=== PATIENT | female | born 1930 | race Caucasian/White ===

== ENCOUNTER 2017-02-09 11:33 | Inpatient (IN) | payer OTHER ==
[~2017-02-09] VITALS: Ht 157.5 cm; Wt 48.6 kg
--- NOTE | 2017-02-09 11:40 | NUR ---
HARRIS SHAH 41 FROM HOME,CALLED 911 FOR ASSISTANCE GETTING BACK TO BED BUT EMS C/O DISCHARGE, DENIES HEMATUIRA OR DYSURIA, NAD NOTED, VSS, PUT ON HOSPITAL GOWN AND MONITOR, WAITING FOR MD FISHER.
[2017-02-09] MEDS ORDERED: CEFTRIAXONE 1 G VIAL ONE (11:52)
[2017-02-09] MEDS ORDERED: AZITHROMYCIN 250 MG TABLET ONE (11:52)
[2017-02-09 12:16] LABS: BASOPHILS % (AUTO) 0.3 % (0.0-2.0); EOSINOPHILS % (AUTO) 0.2 % (0.0-6.0); HEMATOCRIT 48 % (33-45); HEMOGLOBIN 16.1 g/dL (11.5-14.8); LYMPHOCYTES # (AUTO) 1.3 /CMM (0.8-4.8); LYMPHOCYTES % (AUTO) 13.1 % (20.0-44.0); MEAN CORPUSCULAR HEMOGLOBIN 36 PG (26.0-33.0); MEAN CORPUSCULAR HGB CONC 34 g/dl (31.0-36.0); MEAN CORPUSCULAR VOLUME 106 fL (82-100); MONOCYTES # (AUTO) 0.8 /CMM (0.1-1.30); MONOCYTES % (AUTO) 8.2 % (2.0-12.0); NEUTROPHILS # (AUTO) 7.7 /CMM (1.8-8.9); NEUTROPHILS % (AUTO) 78.2 % (43.0-81.0); PLATELET COUNT (AUTO) 171 /CMM (150-450); RED BLOOD CELL COUNT(AUTO) 4.48 MIL/uL (4.0-5.2); WHITE BLOOD COUNT (AUTO) 9.9 K/uL (4.3-11.0)
[2017-02-09 12:24] LABS: CALCIUM, SERUM 9.4 mg/dL (8.5-10.1); CARBON DIOXIDE 29 mmol/L (21-32); CHLORIDE 99 mmol/L (98-107); CREATININE 1.3 mg/dL (0.6-1.3); GLUCOSE 115 mg/dL (74-106); POTASSIUM 3.4 mmol/L (3.5-5.1); SODIUM SERUM 137 mmol/L (136-145); UREA NITROGEN, BLOOD 25 mg/dL (7-18)
[2017-02-09 12:30] LABS: ACETAMINOPHEN 0 ug/ml (10-30); ALANINE AMINOTRANSFERASE 19 U/L (12-78); ALBUMIN 3.9 g/dL (3.4-5.0); ALCOHOL, BLOOD < 3 mg/dL (0-0); ALKALINE PHOSPHATASE 109 U/L (46-116); ASPARTATE AMINOTRANSFERASE 36 U/L (15-37); BILIRUBIN,DIRECT 0.4 mg/dL (0.0-0.2); BILIRUBIN,TOTAL 1.8 mg/dL (0.2-1.0); SALICYLATE < 0.2 mg/dL (2.8-20.0); TOTAL PROTEIN, SERUM 8.6 g/dL (6.4-8.2)
[2017-02-09] MEDS ORDERED: IV NS 0.9% 1,000 ML BAG IV ONE (13:00)
--- NOTE | 2017-02-09 13:06 | NUR ---
PT BACK FROM CT SCAN
[2017-02-09 13:26] LABS: LYMPHOCYTES % (MANUAL) 14 % (16-48); MONOCYTES % (MANUAL) 9 % (0-11.0); NEUTROPHILS % (MANUAL) 77 (42-76)
--- NOTE | 2017-02-09 13:54 | NUR ---
CALLED 3W FEW TIMES, BASIL SELBY WILL CALL BACK FOR REPORT, RM [phone]
--- NOTE | 2017-02-09 14:20 | NUR ---
REPORT GIVEN TO JULIANA
[2017-02-09 15:00] VITALS: BP 180/100
--- NOTE | 2017-02-09 15:00 | NUR ---
FIRE PATROL NOTES PATIENT ADMITTED FROM ER, ON DX OF FAILURE TO THRIVE, AND DEHYDRATION, PATIENT A/O X2/3, CONFUSED, FORGETFUL. NO RESPIRATORY DISTRESS, REDIRECTABLE, SKIN ASSESSMENT DONE, PICTURE TAKEN, V/S TAKEN BP- 180/100, P-88, R-19, O2 -93 ROOM AIR, T-97.7. DVT PUMP ON, . IV ON LEFT AC AREA INFUSING D5 1/2 NS 75 ML/HR, INTACT, NO INFILTRATION. NEEDS ATTENDED AND ANTICIPATED, BELONGING CHECKED, CALL LIGHT WITHIN TO REACH, SIDE RAILS UP X2, BED ALARM ON, DR ARIZA AWARE OF NEW PATIENT, AND LAB RESULT, PATIENT EAT 40 %, ENCOURAGED TO INCREASE FLUID INTAKE. CONTINUED MONITORING.
[2017-02-09] MEDS ORDERED: ACETAMINOPHEN 325 MG TABLET PO PRN (15:30)
[2017-02-09] MEDS ORDERED: HYDROCODONE/APAP 5/325MG 1 EACH TABLET PO PRN (15:30)
[2017-02-09] MEDS ORDERED: MAGNESIUM HYDROXIDE 30 ML UDC PO PRN (15:30)
[2017-02-09] MEDS ORDERED: Z GUARD REMEDY 2 OZ OINT TP PRN (15:30)
[2017-02-09] MEDS ORDERED: ONDANSETRON HCL/PF 4 MG/2 ML VIAL IVP PRN (15:30)
[2017-02-09] MEDS ORDERED: MAG HYDROX/AL HYDROX/SIMETH 30 ML UDC PO PRN (15:30)
[2017-02-09] MEDS ORDERED: ZOLPIDEM TARTRATE 5 MG TABLET PO PRN (15:30)
[2017-02-09 16:00] VITALS: BP 170/100
[2017-02-09] MEDS: IV D5/0.45 NACL 1,000 ML IV PRN (16:16)
--- NOTE | 2017-02-09 18:11 | NUR ---
RN NOTES PATIENT IN THE BED AT THIS TIME, NO ACUTE DISTRESS, NO RESPIRATORY DISTRESS, RUNNING IV ON LEFT AC AREA, INTACT 75ML/HR, NO C/O PAIN, DVT PUMP ON, PT ASSIST TURN AND REPOSITION 2 HR, CALL LIGHT WITHIN TO REACH, SAFETY PRECAUTION MAINTAINED ALL THE TIME.
--- NOTE | 2017-02-09 18:56 | NUR ---
RN NOTES PATIENT STABLE AT THIS TIME, NO C/O PAIN, NO RESPIRATORY DISTRESS, ENDORSED ONCOMING NURSE FOR CONTINUATION OF CARE.
--- NOTE | 2017-02-09 19:15 | NUR ---
MS/SOCIAL WORK MANAGER; RECEIVED PT IN BED AWAKE ALERT AND FRANNIE;ANNA . DENIES PAIN. BREATHING NON LABORED. IVF ON PRGRESS. BED ON LOWER POSITION AND [id number] FOR SAFETY. SIDE RAILS ARE UP FOR SAFETY. WILL CONTINUE TO MONITOR. CALL LIGHT WITHIN REACH.
[2017-02-09 20:00] VITALS: BP 140/91
--- NOTE | 2017-02-09 21:25 | NUR ---
MS/PERFORMANCE IMPROVEMENT SPECIALIST; PT REQUESTED FOR SLEEPING PILL. AMBIEN 5 MG PO HS PRN GIVEN.
--- NOTE | 2017-02-10 01:30 | NUR ---
MS/CERAMIC COATER MACHINE; PT AWAKE AT THIS TIME ; SHE SAID I NEED HELP. NOTED PT IS INCONTINENT OF URINE MOD. AMOUNT YELLOW COLOR. PERINEAL CARE DONE BY THE RIVER TESTER. TURNED AND REPOSITIONED TO LT SIDE WITH PILLOW SUPPORT TO BACK. IVF ON FUSING. PT ENCOURAGED TO GO BACK TO SLEEP.
--- NOTE | 2017-02-10 06:28 | NUR ---
MS/CEO [place]; SLEPT ON AND OFF. PT DENIES PAIN. INCONTINENT OF URINE . MORNING CARE DONE BY THE DUMP TRUCK DRIVER OFF [address]. HAS BEEN TURNED AND REPOSITIONED I IVF ON PROGRESS. CONTINUE TO MONITOR. PT WAS SAYING OF GOING HOME WITH KISHORE. WILL ENDORSE TO THE DAY SHIFT NURSE. CALL LIGHT WITHIN REACH.
[2017-02-10 07:12] LABS: BASOPHILS % (AUTO) 0.2 % (0.0-2.0); EOSINOPHILS % (AUTO) 0.4 % (0.0-6.0); HEMATOCRIT 43 % (33-45); HEMOGLOBIN 14.3 g/dL (11.5-14.8); LYMPHOCYTES # (AUTO) 1.1 /CMM (0.8-4.8); LYMPHOCYTES % (AUTO) 12.7 % (20.0-44.0); MEAN CORPUSCULAR HEMOGLOBIN 36 PG (26.0-33.0); MEAN CORPUSCULAR HGB CONC 33 g/dl (31.0-36.0); MEAN CORPUSCULAR VOLUME 107 fL (82-100); MONOCYTES # (AUTO) 0.6 /CMM (0.1-1.30); MONOCYTES % (AUTO) 7.8 % (2.0-12.0); NEUTROPHILS # (AUTO) 6.6 /CMM (1.8-8.9); NEUTROPHILS % (AUTO) 78.9 % (43.0-81.0); PLATELET COUNT (AUTO) 144 /CMM (150-450); RDW COEFFICIENT OF VARIATION 14.2 (11.5-15.0); RED BLOOD CELL COUNT(AUTO) 4.01 MIL/uL (4.0-5.2); WHITE BLOOD COUNT (AUTO) 8.3 K/uL (4.3-11.0)
--- NOTE | 2017-02-10 07:40 | NUR ---
RN OPENING NOTES RECEIVE PT. IN BED A&OX2, CONFUSED AND FORGETFUL. BREATHING UNLABORED AND EVENLY ON ROOM AIR. NO S/S OF ACUTE DISTRESS. IV FLUIDS RUNNING AT 75 ML/HR. DVT PUMPS ARE ON BOTH LEGS. BED IS IN LOWEST, LOCKED POSITION, 3 SIDE RAILS UP, AND INSTRUCTED PT. TO USE CALL LIGHT FOR ASSISTANCE. WILL CONTINUE TO ASSESS AND MONITOR.
[2017-02-10 07:51] LABS: CALCIUM, SERUM 8.7 mg/dL (8.5-10.1); CARBON DIOXIDE 25 mmol/L (21-32); CHLORIDE 101 mmol/L (98-107); CREATININE 0.9 mg/dL (0.6-1.3); GLUCOSE 129 mg/dL (74-106); MAGNESIUM 1.4 mg/dL (1.8-2.4); PHOSPHORUS 2.4 mg/dL (2.5-4.9); POTASSIUM 3.1 mmol/L (3.5-5.1); SODIUM SERUM 136 mmol/L (136-145); UREA NITROGEN, BLOOD 19 mg/dL (7-18)
[2017-02-10 07:56] LABS: HDL CHOLESTEROL 62 mg/dL (40-60); TRIGLYCERIDES 195 mg/dL (30-150)
[2017-02-10 07:57] LABS: LDL 144 mg/dL (0-99); THYROID STIMULATING HORMONE 62.813 uIU/mL (0.358-3.74)
[2017-02-10 08:00] VITALS: BP 154/107
[2017-02-10 08:38] LABS: CHOLESTEROL 276 mg/dL (<200)
[2017-02-10] MEDS: LEVOTHYROXINE SODIUM 75 MCG TABLET PO SCH (09:12)
[2017-02-10] MEDS: LISINOPRIL (10MG) 10 MG TABLET PO SCH (09:13)
[2017-02-10] MEDS ORDERED: POTASSIUM CHLORIDE 20 MEQ TAB.PRT.SR PO SCH (12:00)
[2017-02-10] MEDS: Magnesium 1GM/D5W 100ML PREMIX 100 ML IV SCH ×4 (12:46→20:43)
[2017-02-10] MEDS: IV D5/0.45 NACL 1,000 ML IV PRN (12:47)
[2017-02-10] MEDS ORDERED: K PHOS NEUTRAL 250 MG TABLET PO ONE (13:30)
[2017-02-10 16:00] VITALS: BP 116/70
--- NOTE | 2017-02-10 19:00 | NUR ---
RN NOTES PT. REMOVED PULLED OUT HER IV ON THE LEFT ANTECUBITAL SITE. BLEEDING WAS STOPPED AND CONTROLLED. CHARGE NURSE WAS INFORMED AND SUGGESTED TO PLACE PT. IN ROOM WITH 1:1 SITTER.
--- NOTE | 2017-02-10 19:30 | NUR ---
MS/ELECTRICAL SUPERINTENDENT; RECEIVED PT 'S REPORTS FROM THE DAY SHIFT RN. AT THIS TIME. PT HAS NO IVF PER DAY SHIFT RN PT PULLED OUT HER IV. PT IN BED AWAKE VERBALLY RESPONSIVE BUT CONFUSED. BED ON LOWER POSITION AND LOCKED FOR SAFETY. SIDE RAILS ARE UP FOR SAFETY. WITH DVT PUMP ON BOTH LOWER LEGS. PT REMINDED NOT TO GET OUT OF BED. CONTINUE TO MONITOR. CALL LIGHT WITHIN.
[2017-02-10 19:39] VITALS: BP 148/100
--- NOTE | 2017-02-10 19:45 | NUR ---
MS/JEWEL BEARING FACER; NOTED AT THIS TIME PT TALKING ON THE PHONE SHE SAID SHE IS TALKING TO KISHORE.
--- NOTE | 2017-02-10 20:10 | NUR ---
MS/WOOD BOATBUILDER APPRENTICE; NEW IV LINE STARTED BY THE APPLIANCE COUNSELOR ON LFA # 22 ANGIO CATH. IVF RESUMED.
--- NOTE | 2017-02-10 20:22 | NUR ---
RN CLOSING NOTES PT. IN BED A&OX2, CONFUSED AND FORGETFUL. BREATHING UNLABORED AND EVENLY ON ROOM AIR. NO S/S OF ACUTE DISTRESS. IV FLUIDS AT BEDSIDE. BED IS IN LOWEST, LOCKED POSITION, 3 SIDE RAILS UP, AND INSTRUCTED PT. TO USE CALL LIGHT FOR ASSISTANCE. WILL ENDORSE REPORT TO NURSE.
--- NOTE | 2017-02-10 20:40 | NUR ---
MS/JBOSS DEVELOPER; I TOLD MY RN , ESTRELLA TO GIVE MAGNESIUM IVPB X 1 MORE ENDORSED BY THE DAY SHIFT RN.
--- NOTE | 2017-02-11 07:25 | NUR ---
RN OPEN NOTES RECEIVED REPORT FROM AIRFRAME AND POWERPLANT MECHANIC NURSE. WILL CONTINUE TO MONITOR AND ASSESS PATIENT THROUGH OUT MY SHIFT
[2017-02-11] MEDS: LEVOTHYROXINE SODIUM 75 MCG TABLET PO SCH (07:30)
[2017-02-11 08:00] VITALS: BP 150/97
[2017-02-11] MEDS: LISINOPRIL (10MG) 10 MG TABLET PO SCH (09:00)
--- NOTE | 2017-02-11 09:40 | NUR ---
PATIENT IS AGITATED. TRYING TO PULL OUT HER IV. NOTIFIED. NEW ORDERS RECEIVED AND CUATE OUT
[2017-02-11] MEDS ORDERED: HALOPERIDOL LACTATE INJ 5 MG/ML VIAL IM ONE (10:00)
--- NOTE | 2017-02-11 10:25 | NUR ---
MIDLINE NURSE AT BEDSIDE Addendum: 02/11/17 at 1059 by JULIA GREY RN WRONG PATIENT DOCUMENTATION
[2017-02-11 10:35] LABS: CALCIUM, SERUM 8.2 mg/dL (8.5-10.1); CARBON DIOXIDE 27 mmol/L (21-32); CHLORIDE 99 mmol/L (98-107); CREATININE 0.9 mg/dL (0.6-1.3); GLUCOSE 136 mg/dL (74-106); MAGNESIUM 2.7 mg/dL (1.8-2.4); PHOSPHORUS 2.7 mg/dL (2.5-4.9); SODIUM SERUM 135 mmol/L (136-145); UREA NITROGEN, BLOOD 12 mg/dL (7-18)
--- NOTE | 2017-02-11 10:43 | NUR ---
MIDLINE INSERTED. RIGHT UPPER ARM 18 G Addendum: 02/11/17 at 1059 by JULIA GREY RN WRONG PATIENT DOCUMENTATION
--- NOTE | 2017-02-11 11:00 | NUR ---
PATIENT PULLED OUT HER IV LINE. MD ABREU
--- NOTE | 2017-02-11 11:00 | NUR ---
DISREGARD MIDLINE NOTE. DOCUMENTED UNDER THE WRONG PATIENT
[2017-02-11] MEDS ORDERED: POTASSIUM CHLORIDE 20 MEQ TAB.PRT.SR PO SCH (14:30)
[2017-02-11 16:00] VITALS: BP 152/105
--- NOTE | 2017-02-11 17:58 | NUR ---
PATIENT VERBALIZED SUICIDAL IDEATION. PER PATIENT: " I DIDN'T THINK I WILL HAVE COME TO THIS BUT I WANT TO COMMIT A SUICIDE" WHEN I ASKED THE PATIENT HOW WILL SHE DO IT, PATIENT REPLIED: "I WILL JUMP". WILL CALL
--- NOTE | 2017-02-11 18:10 | NUR ---
CALLED AND SPOKE WITH DR ARIZA REGARDING MY CONCERNS OF SUICIDAL IDEATION VERBALIZED BY THE PATIENT. NEW ORDERS RECEIVED. 1:1 SITTER AND CRISIS TEAM PHILLIP
--- NOTE | 2017-02-11 18:15 | NUR ---
SPOKE WITH ER. ELBERT IS AT THE ER RIGHT NOW AND WILL COME HERE RIGHT AFTER
--- NOTE | 2017-02-11 18:16 | NUR ---
PATIENT WILL MOVE TO ROOM 309-2 FOR 1:1 SITTER
--- NOTE | 2017-02-11 18:34 | NUR ---
RN CLOSING NOTES PATIENT IS IN BED, AWAKE. ALERT AND ORIENTED TO NAME AND PLACE WITH PERIOD OF CONFUSIONS AND FORGETFULNESS. BREATHING UNLABORED AND EVENLY ON ROOM AIR. NO SIGNS AND SYMPTOMS OF DISTRESS. PATIENT PULLED OUT HER IV AND REFUSED ANOTHER, MD AWARE. POTASSIUM LEVEL WAS LOW, ADMINISTERED 60 MEQ OF PO KCL. BED IS IN LOW POSITION, LOCKED POSITION AND 3 SIDE RAILS UP. CALL LIGHT IS WITHIN REACH. PATIENT TO MOVE TO ROOM 309-2 WHEN ROOM IS AVAILABLE FOR 1:1 SITTER FOR SUICIDAL IDEATION. CRISIS TEAM NOTIFIED AND WILL EVALUATE PATIENT SOON. WILL ENDORSE REPORT TO HONING JOB SETTER NURSE.
--- NOTE | 2017-02-11 19:50 | NUR ---
MS/RN OPENING NOTES PATIENT IN BED, BEING MONITORED FOR ANY S/S OF SELF HARM PATIENT REPORTED TO AM RN PLAN TO JUMP TO KILL SELF. PATIENT AWAKE , ABLE TO VERBALIZE NEEDS AND WANTING TO HAVE SOME VODKA, BED IN LOCK POSITION AND BED ALARM ON. AWAITIN FOR A ONE ON ONE SITTER AND WILL BE MOVED TO ANOTHER ROOM. CRISIS TEAM, ELBERT CALLED AND ASK PATIENT CONDITION SAID WILL COME AND SEE THE PATIENT, PATIENT REFUSING TO HAVE IV REINSERTED AND MD MADE AWARE. WILL CONTINUE TO MONITOR. OFFERED TO HAVE SNACKS BUT PATIENT REFUSED. WILL CONTINUE TO MONITOR.
[2017-02-11 20:00] VITALS: BP 116/73
[2017-02-11 20:43] VITALS: BP 116/73
--- NOTE | 2017-02-11 21:36 | NUR ---
ms/rn notes Crisis team Mónica called and followed up patient, inform patient is now with one on one sitter, calm and about to sleep. being monitored for any changes. Per Mónica, will not be able to see her but Art of crisis team will be on tonight and for any changes inform by calling pipeline controller MD Chambers. Crisis team not able to interview patient tonight but called via phone at this time does not meet patient to be put yet on 5150 as patient has one on one sitter and calm per crisis child study team director Mónica.
--- NOTE | 2017-02-12 06:33 | NUR ---
309-2 MS/RN CLOSING NOTES PATIENT ABLE TO SLEEP DURING THE NIGHT, WITH ONE ON ONE SITTER, MONITORING FOR ANY S/S OF SI. PROVIDED SNACKS OF PUDDING.RESPIRATION EVEN AND UNLABORED WILL CONTINUE TO MONITOR.
[2017-02-12 06:43] LABS: CALCIUM, SERUM 8.7 mg/dL (8.5-10.1); CARBON DIOXIDE 25 mmol/L (21-32); CHLORIDE 100 mmol/L (98-107); CREATININE 0.9 mg/dL (0.6-1.3); GLUCOSE 119 mg/dL (74-106); POTASSIUM 3.7 mmol/L (3.5-5.1); SODIUM SERUM 135 mmol/L (136-145); UREA NITROGEN, BLOOD 9 mg/dL (7-18)
[2017-02-12 08:00] VITALS: BP 158/91
[2017-02-12] MEDS: LISINOPRIL (10MG) 10 MG TABLET PO SCH (10:05)
[2017-02-12] MEDS: LEVOTHYROXINE SODIUM 75 MCG TABLET PO SCH (10:06)
[2017-02-12] MEDS ORDERED: ENOXAPARIN SODIUM 40 MG/0.4 ML DISP.SYRIN SQ SCH (10:30)
--- NOTE | 2017-02-12 11:30 | NUR ---
dr. adams in to see pt. meds ordered.
[2017-02-12] MEDS: ENOXAPARIN SODIUM 30 MG/0.3 ML DISP.SYRIN SQ SCH (13:36)
--- NOTE | 2017-02-12 14:30 | NUR ---
friend shelli in to visit,and grandson calling to check on pt.
[2017-02-12 17:00] VITALS: BP 138/81
--- NOTE | 2017-02-12 18:00 | NUR ---
call out to dr. oconnell as bladder scan done on pt. to find urine retention of 400 ml.
--- NOTE | 2017-02-12 18:50 | NUR ---
received order for st. cath and rn made unsuccessful attempt to drain bladder.to endorse to zainab rn.charge nurse made aware.
[2017-02-12 20:00] VITALS: BP 158/85
--- NOTE | 2017-02-12 20:00 | NUR ---
RN NOTES RECEIVED PATIENT IN BED, ALERT AND ORIENTED X2, WITH EPISODES ANXIETY, NO SOB, NO RESPIRATORY DISTRESS, SPO2 AT ROOM AIR96%, DENIES ANY PAIN AT THIS TIME, ABDOMEN SOFT AND NON-TENDER, PER ENDORSEMENT NO URINE OUTPUT IN AM SHIFT, BLADDER SCAN PERFORMED IN AM SHIFT, PER REPORT SCAN WAS 400 CC. NO IV LINE. WILL PERFORM STRAIGHT CATH AND INSERT IV LINE, SITTER AT THE BEDSIDE. CALL LIGHT WITHIN REACH.
--- NOTE | 2017-02-12 20:25 | NUR ---
RN NOTES PERFORMED STRAIGHT CATH, URINE OUTPUT IS 100 CC, DARK YELLOW, NO ODOR. INSERTED IV LINE TO RIGHT FA, USING 24 GAUGE, PROCEDURE TOLERATED WELL. WILL CONTINUE TO MONITOR.
[2017-02-12] MEDS: IV D5/0.45 NACL 1,000 ML IV PRN (20:36)
--- NOTE | 2017-02-12 21:30 | NUR ---
RN NOTES GIVEN REPORT TO GIBSON FOR CONTINUITY OF CARE
--- NOTE | 2017-02-12 21:45 | NUR ---
RN NOTES RECEIVED PT. FROM ANOTHER NURSE , PT AWAKE, SITTER AT BEDSIDE, A/OX2, IV FLUID RUNNING, DENIES PAIN, NO SOB, CALL LIGHT WITHIN REACH, SIDERAILS UPX2 CONTINUE TO MONITOR
[2017-02-12 21:55] LABS: APPEARANCE,URINE CLEAR (CLEAR); BACTERIA,URINE Rare /HPF (None Seen); BILIRUBIN,URINE NEGATIVE (NEGATIVE); BLOOD, URINE TRACE-INTA Ery/uL (NEGATIVE); COLOR,URINE YELLOW (YELLOW); KETONES,URINE NEGATIVE (NEGATIVE); LEUKOCYTE ESTERASE ,URINE NEGATIVE (NEGATIVE); NITRITE, URINE NEGATIVE (NEGATIVE); PROTEIN,URINE NEGATIVE (NEGATIVE); RBC,URINE 0-2 /HPF (0-2); SQUAMOUS EPITHELIAL CELL,UR Few /HPF (None Seen); UGLUCOSE NEGATIVE (NEGATIVE); UROBILINOGEN,URINE 0.2 EU/dL (0.2); WBC,URINE 0-2 /HPF (0-3)
[2017-02-12] MEDS: QUETIAPINE FUMARATE 25 MG TABLET PO SCH (22:00)
[2017-02-13 06:00] VITALS: BP_SYST 139; BP_SYST 169; BP_DIAS 103; BP_DIAS 83
--- NOTE | 2017-02-13 06:53 | NUR ---
RN NOTES AWAKE, DENIES PAIN, NO SOB, MORNING CARE RENDERED, PT. NEEDS ATTENDED. ENDORSED TO DAYSHIFT NURSE FORE CONTINUITY OF CARE
[2017-02-13 07:00] VITALS: BP 158/91
--- NOTE | 2017-02-13 07:10 | NUR ---
RN NOTES PT IS IN BED, SLEEPING COMFORTABLY WITH SITTER AT BEDSIDE. PT ON RA, RESPIRATIONS ARE EVEN AND UNLABORED. IV ON RFA INTACT AND PATENT, RUNNING D51/2 NS AT 75ML/HR. SAFETY MEASURES ARE IN PLACE, CALL LIGHT IS IN REACH. WILL CONTINUE TO MONITOR.
[2017-02-13] MEDS: LEVOTHYROXINE SODIUM 75 MCG TABLET PO SCH (07:30)
[2017-02-13 08:00] VITALS: BP 144/88
[2017-02-13] MEDS: ESCITALOPRAM OXALATE (10 MG) 10 MG TABLET PO SCH (08:26)
[2017-02-13] MEDS: LISINOPRIL (10MG) 10 MG TABLET PO SCH (08:26)
[2017-02-13] MEDS: ENOXAPARIN SODIUM 30 MG/0.3 ML DISP.SYRIN SQ SCH (08:27)
[2017-02-13] MEDS: IV D5/0.45 NACL 1,000 ML IV PRN ×2 (09:22→23:16)
[2017-02-13] MEDS: LEVOTHYROXINE INJ 100 MCG VIAL IV SCH (10:11)
[2017-02-13 12:28] LABS: BASOPHILS % (AUTO) 0.6 % (0.0-2.0); EOSINOPHILS % (AUTO) 0.7 % (0.0-6.0); HEMATOCRIT 43 % (33-45); HEMOGLOBIN 14.5 g/dL (11.5-14.8); LYMPHOCYTES % (AUTO) 13.5 % (20.0-44.0); MEAN CORPUSCULAR HEMOGLOBIN 36 PG (26.0-33.0); MEAN CORPUSCULAR HGB CONC 34 g/dl (31.0-36.0); MEAN CORPUSCULAR VOLUME 105 fL (82-100); MONOCYTES # (AUTO) 0.7 /CMM (0.1-1.30); MONOCYTES % (AUTO) 8.8 % (2.0-12.0); NEUTROPHILS # (AUTO) 5.7 /CMM (1.8-8.9); NEUTROPHILS % (AUTO) 76.4 % (43.0-81.0); PLATELET COUNT (AUTO) 248 /CMM (150-450); RDW COEFFICIENT OF VARIATION 13.4 (11.5-15.0); RED BLOOD CELL COUNT(AUTO) 4.06 MIL/uL (4.0-5.2); WHITE BLOOD COUNT (AUTO) 7.5 K/uL (4.3-11.0)
[2017-02-13 16:00] VITALS: BP 188/106
[2017-02-13] MEDS: CLONIDINE HCL 0.1 MG TABLET PO SCH (17:00)
--- NOTE | 2017-02-13 17:16 | NUR ---
RN NOTE PTS BP 188/106. DR. ARIZA NOTIFIED AND ORDERED CLONIDINE TO BE GIVEN NOW. PT WAS EDUCATED ON THE PURPOSE OF THE ANTIHYPERTENSIVE AT THAT IT WAS VERY DANGEROUS TO HAVE A BP THAT HIGH. PT REFUSED MED, STATES SHES HAD THIS PROBLEM FOR YEARS AND DOESNT NEED IT.
--- NOTE | 2017-02-13 18:33 | NUR ---
RN NOTES PT IS IN BED, RESTING COMFORTABLY WITH SITTER AT BEDSIDE. PT ON RA, RESPIRATIONS ARE EVEN AND UNLABORED. IV ON RFA INTACT AND PATENT, RUNNING D51/2 NS @ 75ML/HR. PT KEPT CLEAN AND DRY. PT REFUSED ALL MEDICATIONS, DOESNT BELIEVE SHE NEEDS THEM. SAFETY MEASURES ARE IN PLACE, CALL LIGHT IS IN REACH. WILL ENDORSE TO INTERNATIONAL LOGISTICS COORDINATOR RN FOR CONTINUITY OF CARE.
--- NOTE | 2017-02-13 19:36 | NUR ---
RN NOTES PT IS ALERT AND ORIENTEDX2. SITTER PRESENT AT BEDSIDE. PT ON RA. NO SOB. NO C/O PAIN AT THIS TIME. RESPIRATIONS ARE EVEN AND UNLABORED. IV ACCESS ON RFA INTACT AND PATENT. INFUSING D51/2 NS @ 75ML/HR. BED IN LOW POSITION. SIDE RAILS X2. CALL LIGHT WITHIN EASY REACH. CONTINUE TO MONITOR.
--- NOTE | 2017-02-13 19:51 | NUR ---
RN NOTES BP 174/89/. PATIENT REFUSED TAKING ANY BP MEDICATIONS. CALLED DR VELA TO PLACE THE ORDER OF CLONIDINE 0.1 MG POX1 NOW.
[2017-02-13 20:00] VITALS: BP 174/84
[2017-02-13] MEDS ORDERED: CLONIDINE HCL 0.1 MG TABLET PO ONE (20:00)
[2017-02-13] MEDS: QUETIAPINE FUMARATE 25 MG TABLET PO SCH (21:59)
--- NOTE | 2017-02-13 22:02 | NUR ---
RN NOTES RECHECKED BP AFTER CLONIDINE 134/82
--- NOTE | 2017-02-14 07:02 | NUR ---
RN CLOSING NOTES PT SLEEPING IN BED. SITTER PRESENT AT BEDSIDE. PT ON RA. NO SOB. RESPIRATIONS ARE EVEN AND UNLABORED. NO RESPIRATORY DISTRESS NOTED. IV ACCESS ON RFA INTACT AND PATENT. INFUSING D51/2 NS @ 75ML/HR. ALL MEDICATIONS GIVEN PER MD ORDER. BED IN LOW POSITION. SIDE RAILS X2. CALL LIGHT WITHIN EASY REACH. WILL ENDORSE TO RN DAY SHIFT FOR CONTINUITY OF CARE.
--- NOTE | 2017-02-14 07:20 | NUR ---
MS RN NOTES RECEIVED PATIENT IN BED, AWAKE. A/O X1-2, FORGETFUL. ON ROOM AIR, NO SOB. IVF D5 1/2 NS INFUSING AT 75ML/HR. PATIENT WITH CONFUSION, SLIDING HERSELF TO SIDE OF THE BED. REORIENT, NO C/O ANY DISCOMFORT. CALL LIGHT WITHIN REACH. 1:1 SITTER AT THE BEDSIDE. WILL CONT TO MONITOR.
[2017-02-14] MEDS ORDERED: LEVOTHYROXINE SODIUM 75 MCG TABLET PO SCH (07:30)
[2017-02-14 08:00] VITALS: BP 148/103
[2017-02-14] MEDS: LEVOTHYROXINE INJ 100 MCG VIAL IV SCH (08:39)
[2017-02-14] MEDS: ENOXAPARIN SODIUM 30 MG/0.3 ML DISP.SYRIN SQ SCH (08:47)
[2017-02-14] MEDS: ESCITALOPRAM OXALATE (10 MG) 10 MG TABLET PO SCH (08:49)
[2017-02-14] MEDS: LISINOPRIL (10MG) 10 MG TABLET PO SCH (08:49)
[2017-02-14] MEDS: CLONIDINE HCL 0.1 MG TABLET PO SCH (08:49)
[2017-02-14] MEDS ORDERED: LEVOTHYROXINE INJ 100 MCG VIAL IV SCH (09:00)
[2017-02-14] MEDS ORDERED: CLONIDINE HCL 0.1MG/24H PTWK 1 EA PATCH TD SCH (10:00)
--- NOTE | 2017-02-14 12:23 | NUR ---
PATIENT PREVIOUSLY ON CLONIDINE 0.1MG TID MARYANN. DOSE GIVEN THIS MORNING. CALLED PHARMACY, SPOKE TO SLOANE. WILL START CLONIDINE PATCH TOMORROW. LOW BP 108/62.
[2017-02-14] MEDS: IV D5/0.45 NACL 1,000 ML IV PRN (15:25)
[2017-02-14 16:00] VITALS: BP 112/63
--- NOTE | 2017-02-14 18:46 | NUR ---
MS RN CLOSING NOTES PATIENT IN BED, A/O 1-2, WITH EPISODE OF CONFUSION. IV D5 1/2 NS INFUSING AT 75ML/HR, TOLERATING WELL. NO SOB. SEEN BY PT TODAY, WALK 30 FEET PER PT. PATIENT WITH EPISODE OF AGITATION AND ANXIETY, ABLE TO CALM HER DOWN AND REORIENT. FAMILY SUPPORTIVE AT THE BEDSIDE. PATIENT WAS EVALUATED TODAY BY CRISIS TEAM AND PLACE ON 5150 FOR DTS AND GRAVELY DISABLED AND WILL BE ADMITTED TO [facility]. 1:1 SITTER AT THE BEDSIDE. WILL ENDORSE TO MEDICAL FACILITIES SECTION DIRECTOR RN FOR MERY.
--- NOTE | 2017-02-14 19:30 | NUR ---
MS RN NOTE RECEIVED PATIENT FROM DAY SHIFT, PATIENT IS ALERT AND ORIENTEDX2, ON 5150 DUE TO SI AND DTS, 1:1 SITTER AT BEDSIDE. IV ON LEFT FA IS PATENT AND INTACT, FLUID IS RUNNING. NO S/S OF RESPIRATORY DISTRESS OR PAIN NOTED AT THIS TIME. SRX2, BED IN LOW POSITION, CALL LIGHT WITHIN REACH, WILL CONTINUE TO MONITOR PATIENT.
[2017-02-14 20:00] VITALS: BP 108/57
[2017-02-14 21:00] VITALS: BP_SYST 0
[2017-02-14] MEDS ORDERED: QUETIAPINE FUMARATE 25 MG TABLET PO SCH (22:00)
[2017-02-15] MEDS: IV D5/0.45 NACL 1,000 ML IV PRN (05:03)
--- NOTE | 2017-02-15 06:48 | NUR ---
MS RN NOTE PATIENT IS SLEEPING IN BED COMFORTABLY, NO ACUTE DISTRESS NOTED THROUGHOUT THE SHIFT EXCEPT EPISODES OF CONFUSION AT TIMES. IV ON RIGHT FA IS PATENT AND INTACT, FLUID IS RUNNING. MORNING CARE RENDERED, 1:1 SITTER AT BEDSIDE. WILL ENDORSE TO DAY SHIFT NURSE FOR MERY.
[2017-02-15 08:00] VITALS: BP 133/78
--- NOTE | 2017-02-15 08:15 | NUR ---
MS RN NOTES RECEIVED PATIENT IN BED, SLEEPING. AROUSES EASILY ON ROOM AIR, BREATHING EVEN AND NON LABORED. NO FACIAL GRIMACE. APPEARS COMFORTABLE IN BED, BED LOW AND LOCKED. 1:1 SITTER AT THE BEDSIDE. PATIENT IS ON 5150 FOR DTS AND GD. WILL CONT TO MONITOR.
[2017-02-15] MEDS ORDERED: CLONIDINE HCL 0.1MG/24H PTWK 1 EA PATCH TD SCH (09:00)
[2017-02-15] MEDS: LEVOTHYROXINE INJ 100 MCG VIAL IV SCH (09:18)
[2017-02-15 09:28] VITALS: BP 133/78
[2017-02-15] MEDS: ESCITALOPRAM OXALATE (10 MG) 10 MG TABLET PO SCH (09:28)
[2017-02-15] MEDS: LISINOPRIL (10MG) 10 MG TABLET PO SCH (09:28)
[2017-02-15] MEDS: ENOXAPARIN SODIUM 30 MG/0.3 ML DISP.SYRIN SQ SCH (09:30)
--- NOTE | 2017-02-15 10:57 | NUR ---
PATIENT REFUSING TO AMBULATE WITH PT. PER PATIENT HER KNEE HURTS, OFFERED PAIN MEDICATION AND PT WILL BE RE ATTEMPTED.
--- NOTE | 2017-02-15 12:06 | NUR ---
PATIENT WAS MEDICATED WITH NORCO PRN FOR LEFT KNEE PAIN PRIOR PT. PATIENT STATED HER PAIN REDUCED NOW BUT STILL REFUSING PT. EDUCATE PATIENT WITH PT ENCOURAGEMENT, PATIENT STILL REFUSED AND UNCOOPERATIVE AGAIN.
[2017-02-15] MEDS ORDERED: LEVOTHYROXINE SODIUM 175 MCG TABLET PO SCH (13:00)
--- NOTE | 2017-02-15 13:04 | NUR ---
PATIENT TO BE DISCHARGED TO [facility] ORDERED.
--- NOTE | 2017-02-15 15:02 | NUR ---
MS RN DISCHARGED PATIENT HAS BEEN CLEARED FOR DISCHARGE TO [facility] UNIT. PATIENT IS A/O X2, AMBULATORY WITH ASSIST. REFUSED PT TODAY. SKIN INTACT, VOIDED WITHOUT DIFFICULTY. NO C/O ANY DISCOMFORT. IV IN RFA REMOVED, GAUZED APPLIED, NO BLEEDING NOTED. REPORT GIVEN TO [facility] GPS UNIT. PATIENT TRANSFERRED TO [facility] UNIT VIA WHEELCHAIR ACCOMPANIED BY SANDER.
[2017-02-15] MEDS ORDERED: MAGN400O6 PO (15:37)
[2017-02-15] MEDS ORDERED: CLON1PAT TD (15:37)
[2017-02-15] MEDS ORDERED: ESCI5TAB PO (15:37)
[2017-02-15] MEDS ORDERED: QUET50TA PO (15:37)
[2017-02-15] MEDS ORDERED: ACET-868 PO (15:37)
[2017-02-15] MEDS ORDERED: LISI10TA5 PO (15:37)
[2017-02-15] MEDS ORDERED: HYDR-552 PO (15:37)
[2017-02-15] MEDS ORDERED: LEVO125T8 PO (15:37)
[2017-02-15] MEDS ORDERED: MAG30ORA PO (15:37)
[2017-02-16] MEDS ORDERED: LEVOTHYROXINE SODIUM 175 MCG TABLET PO SCH (07:30)
== END 2017-02-15 14:07 | DRG 73 ==
LOC: ER 11:37 → MED 14:17
PROVIDERS: ADMIT Internal Medicine; ATTEND Internal Medicine
DX: G90.8 Other disorders of autonomic nervous system (principal); N17.0 Acute kidney failure with tubular necrosis; R45.851 Suicidal ideations; F10.24 Alcohol dependence with alcohol-induced mood disorder; W06.XXXA Fall from bed, initial encounter; Y92.003 Bedroom of unspecified non-institutional (private) residence as the place of occurrence of the external cause; Y93.9 Activity, unspecified; E87.6 Hypokalemia; R62.7 Adult failure to thrive; R73.9 Hyperglycemia, unspecified; E03.9 Hypothyroidism, unspecified; E86.0 Dehydration; Z81.8 Family history of other mental and behavioral disorders; E04.1 Nontoxic single thyroid nodule; R74.0 Nonspecific elevation of levels of transaminase and lactic acid dehydrogenase [LDH]; F29 Unspecified psychosis not due to a substance or known physiological condition; Y90.0 Blood alcohol level of less than 20 mg/100 ml; F06.31 Mood disorder due to known physiological condition with depressive features; Z73.6 Limitation of activities due to disability; I11.9 Hypertensive heart disease without heart failure; F41.9 Anxiety disorder, unspecified
CPT/HCPCS: 36415; 70450-TC; 71010-TC; 72170-TC; 76536-TC; 80048-TC; 80061-TC; 80076-TC; 81000-TC; 83735-TC; 84100-TC; 84439-TC; 84443-TC; 84479; 85025-TC; 87081-TC; 93307-TC; 97116-TC; 97530-TC; A4606; G0480; J0696; J1630; J1650; J3475; J3490; J7040; Z7610

== ENCOUNTER 2017-02-15 15:18 | Inpatient (IN) | payer OTHER ==
[~2017-02-15] VITALS: Ht 157.5 cm; Wt 48.5 kg
[2017-02-15 15:00] VITALS: BP 120/52
--- NOTE | 2017-02-15 15:00 | NUR ---
[id number]: PT IS 86 YEARS OLD FEMALE ADMITTED ON 5150 FOR DTS AND GD. ACCORDING TO THE HOLD, PT IS DELUSIONAL, DISORIENTED, SUICIDAL IDEATION, UNABLE TO CARE FOR SELF. PT IS QUIET COOPERATIVE , NICE IN APPROACH, SPEECH; NORMAL RHYTHM AND TONE SPEECH WITH INTACT ASSOCIATION. MOOD DEPRESSED. PT HAS DEPRESSION, ALCOHOL ABUSE, HYPOTHYROIDISM, ANXIETY, HTN. PT IS BEDBOUND, NEEDS ASSISTANCE WITH ADLS, INCONTINENT. MRSA DONE. SKIN ASSESSMENT DONE. ALL BELONGINGS STORED AND DOCUMENTED. DISCUSS WITH PT MEAL TIME AND FRESH AIR BREAKS TIME. NOTIFIED DR. CONNOR AND DR. VEGA. WOUND CONSULT DONE. PT DONE. FAMILY NOTIFIED. ALL PAPERWORK AND COMPUTER DOCUMENTATION COMPLETED. WILL ENDORSE TO INCOMING NURSE TO DOUBLE CHECK ALL PAPERWORK AND COMPUTER DOCUMENTATION.
[2017-02-15] MEDS ORDERED: MAGN400O6 PO (15:37)
[2017-02-15] MEDS ORDERED: ACET-868 PO (15:37)
[2017-02-15] MEDS ORDERED: CLON1PAT TD (15:37)
[2017-02-15] MEDS ORDERED: QUET50TA PO (15:37)
[2017-02-15] MEDS ORDERED: HYDR-552 PO (15:37)
[2017-02-15] MEDS ORDERED: ESCI5TAB PO (15:37)
[2017-02-15] MEDS ORDERED: MAG30ORA PO (15:37)
[2017-02-15] MEDS ORDERED: LEVO125T8 PO (15:37)
[2017-02-15] MEDS ORDERED: LISI10TA5 PO (15:37)
[2017-02-15] MEDS ORDERED: MAGNESIUM HYDROXIDE 30 ML UDC PO PRN (16:00)
[2017-02-15] MEDS ORDERED: ZOLPIDEM TARTRATE 5 MG TABLET PO PRN (16:00)
[2017-02-15] MEDS ORDERED: LORAZEPAM 0.5 MG TABLET PO PRN (16:00)
[2017-02-15] MEDS ORDERED: MAG HYDROX/AL HYDROX/SIMETH 30 ML UDC PO PRN (16:00)
[2017-02-15] MEDS ORDERED: ACETAMINOPHEN 325 MG TABLET PO PRN (16:00)
[2017-02-15] MEDS ORDERED: CLONIDINE HCL 0.1MG/24H PTWK 1 EA PATCH TD SCH (18:00)
[2017-02-15 20:35] VITALS: BP 134/74
[2017-02-16 07:28] LABS: ALANINE AMINOTRANSFERASE 26 U/L (12-78); ALBUMIN 2.2 g/dL (3.4-5.0); ALKALINE PHOSPHATASE 103 U/L (46-116); ASPARTATE AMINOTRANSFERASE 47 U/L (15-37); BILIRUBIN,TOTAL 0.7 mg/dL (0.2-1.0); CALCIUM, SERUM 8.6 mg/dL (8.5-10.1); CARBON DIOXIDE 23 mmol/L (21-32); CHLORIDE 106 mmol/L (98-107); CREATININE 0.8 mg/dL (0.6-1.3); GLUCOSE 98 mg/dL (74-106); POTASSIUM 3.3 mmol/L (3.5-5.1); SODIUM SERUM 138 mmol/L (136-145); TOTAL PROTEIN, SERUM 6.4 g/dL (6.4-8.2); UREA NITROGEN, BLOOD 7 mg/dL (7-18)
[2017-02-16 07:29] LABS: CHOLESTEROL 175 mg/dL (<200); HDL CHOLESTEROL 28 mg/dL (40-60); LDL 94 mg/dL (0-99); TRIGLYCERIDES 163 mg/dL (30-150)
[2017-02-16] MEDS: LEVOTHYROXINE SODIUM 125 MCG TABLET PO SCH ×2 (07:30→07:47)
[2017-02-16 08:00] VITALS: BP 167/92
[2017-02-16] MEDS: LISINOPRIL (10MG) 10 MG TABLET PO SCH (08:53)
[2017-02-16] MEDS ORDERED: POTASSIUM CHLORIDE 20 MEQ TAB.PRT.SR PO ONE (09:00)
--- NOTE | 2017-02-16 09:00 | NUR ---
GPS RN NOTE: PT POTASSIUM 3.3 DR CONNOR ORDER KDUR 20 MEQ PT REFUSED NON COMPLIANT WITH MED,OFFERED X3 PT CONTINUE REFUSING
[2017-02-16] MEDS ORDERED: ESCITALOPRAM OXALATE (10 MG) 10 MG TABLET PO SCH (09:30)
--- NOTE | 2017-02-16 09:53 | NUR ---
GPS RN NOTE: PATIENT IN THE ROOM NO S/S DISTRESS NOTED PATIENT REFUSED MEDICATIONS BP 167/[address] PT REFUSED ALL AM MEDICATIONS BY STATING "I BELIEVE OF GOD AND NOT TAKING MEDICATIONS" EXPLAIN IMPORTANCE X3 PT CONTINUE REUSING DR VEGA AND DR CONNOR SEEN AND EXAMINE PT AWARE OF NON COMPLIANCE OF MEDS WILL CONTINUE MONITORING FOR SAFETY AND BEHAVIOR Q 15 MIN
[2017-02-16] MEDS ORDERED: QUETIAPINE FUMARATE 25 MG TABLET PO SCH ×2 (10:30→22:00)
[2017-02-16] MEDS: QUETIAPINE FUMARATE 25 MG TABLET PO SCH ×2 (11:30→17:00)
--- NOTE | 2017-02-16 15:36 | NUR ---
UR Review: DIMPLE faxed over clinicals to Stephon [phone] / fax number [phone] AUTH#[id number] DIMPLE will follow up.
--- NOTE | 2017-02-16 15:56 | NUR ---
DIMPLE spoke with Stephon [phone] / fax number [phone] from insurance and informed him that patient lives alone and that it might not be the best plan for discharge. Stephon stated that he was aware of this. Stephon stated that when patient was admitted medically, they were trying to place her at [facility] [with [facility]]. Stephon stated that he will look into contracted facilities. DIMPLE stated that she will fax facilities as well. DIMPLE will follow up with Stephon.
--- NOTE | 2017-02-16 15:58 | NUR ---
DIMPLE spoke with Talia, who patient had stated was her conservator. Upon speaking with Talia, , DIMPLE was informed that she is not her conservator and has no castro over her. Talia stated that she is just a friend.
[2017-02-16 16:00] VITALS: BP 167/90
--- NOTE | 2017-02-16 16:14 | NUR ---
Initial Discharge Note Pt resides at [address] [place], [address]. SW international recruiter left a message with listed emergency contact Talia Palma . Pt. states she would like to return home to her apartment upon discharge. SW to communicate with the patients emergency contact Talia Palma regarding safe and appropriate discharge plan. SW to help and form a safe and proper discharge plan DIMPLE spoke with Talia who informed DIMPLE that she is not patient's conservator, but expressed concerns over patient living alone. When DIMPLE spoke with Stephon from insurance, she was informed that patient was in the process of being placed at [facility] when she was admitted to the medical floor. DIMPLE will follow up. DIMPLE will also provide patient with referrals to address her alcohol use.
--- NOTE | 2017-02-16 16:23 | NUR ---
DIMPLE faxed over an inquiry to [facility] fax number [phone] DIMPLE will follow up in the morning.
[2017-02-16] MEDS: BOOST PLUS FOOD-CHOCLATE 237 ML BOX PO SCH (19:30)
--- NOTE | 2017-02-16 19:30 | NUR ---
GPS RN NOTE, RECEIVED PATIENT AWAKE AND IN BED NO S/S OR COMPLAINTS OF PAIN AT THIS TIME. PATIENT IS DISPLAYING NO S/S OF APPARENT DISTRESS AT THIS TIME. PATIENT BREATHING IS UNLABORED WITH EQUAL RISE AND FALL OF THE CHEST. PATIENT IS ALERT AND ORIENTED X1 ON ROOM AIR WITH A SPOO2 99 %. PATIENT IS REFUSING MEDICATION, DISORGANIZED, CONFUSED AND NEEDS REORIENTATION. PATIENT DENIES SUICIDE IDEATIONS AND HOMICIDAL IDEATIONS AT THIS TIME. PATIENT ASSISTED WITH TURNING AND REPOSITIONING Q2HR AND PRN FOR COMFORT AND CIRCULATION. PATIENT HAS NO NEEDS AT THIS TIME. PATIENT EDUCATED ON THE USE OF THE CALL DINH. PATIENT BED SIDE RAILS UP X 2 FOR SAFETY. PATIENT BED IS LOCKED AND LOW WILL CONTINUE TO MONITOR AND MAINTAIN SAFETY Q15 MIN WITH THE HELP OF STAFF.
[2017-02-16 20:15] VITALS: BP 169/93
--- NOTE | 2017-02-17 07:00 | NUR ---
RN OPENING NOTE PT LYING IN BED. DENIES SI/HI. DENIES AVH. MOVES ALL EXT. A&OX1. FREE FROM INJURY AT PRESENT. WILL CONT TO MONITOR.
[2017-02-17] MEDS: LEVOTHYROXINE SODIUM 125 MCG TABLET PO SCH (07:30)
[2017-02-17] MEDS: BOOST PLUS FOOD-CHOCLATE 237 ML BOX PO SCH ×2 (08:00→16:29)
[2017-02-17] MEDS: QUETIAPINE FUMARATE 25 MG TABLET PO SCH ×2 (09:00→16:29)
[2017-02-17] MEDS: LISINOPRIL (10MG) 10 MG TABLET PO SCH (09:00)
--- NOTE | 2017-02-17 09:00 | NUR ---
PT REFUSED MEDICATIONS. NOTIFIED MD AND CN.
[2017-02-17 09:06] VITALS: BP 165/95
--- NOTE | 2017-02-17 11:29 | NUR ---
DIMPLE spoke with email administrator Cruzito from admissions at [facility] fax number [phone] who stated that they do not want to to an [facility] and that the patient does not have any skilled needs for placement. Placement was denied.
--- NOTE | 2017-02-17 11:51 | NUR ---
SW called pt's friend, Talia Palma and left her a message regarding pt's discharge. SW also attempted to contact patient's grandson, Donte at [phone] but was unable to leave a message due to the voicemail box being full. Per Dr. Jackman, patient's hold is finished and she no longer meets the criteria for a hold. Patient will be discharged today.
--- NOTE | 2017-02-17 11:56 | NUR ---
DIMPLE called and left a voicemail for Talia Palma again, informing her of the discharge. DIMPLE stated that the patient no longer meets the criteria for a hold and will be leaving against medical advice. DIMPLE stated that she will arrange safe transportation and will provide referrals for patient.
--- NOTE | 2017-02-17 13:06 | NUR ---
RN NOTES PT REFUSED SKIN PHOTOS AT DISCHARGE.
--- NOTE | 2017-02-17 15:17 | NUR ---
DIMPLE faxed over the following facilities: [facility], / fax [phone] DIMPLE was informed that no female beds were available [facility], / fax [phone]
--- NOTE | 2017-02-17 15:19 | NUR ---
DIMPLE spoke at length with Destiny, pt's [id number], and informed her that, although patient had told granddaughter that she wanted rehabilitative services, she is adamantly telling foster care social worker and nurses that she "wants to go home." Patient does not wish to sign the voluntary stay paperwork. When asked by, both, charge nurse Felipe and by SW, if she wanted to stay at the hospital while SW works on finding rehabilitative services/placement, patient stated "No, I want to go home. I do not want to stay here." Patient does not meet criteria for a hold and signed a release form against medical advice. Although rehabilitative services and placement would be beneficial to patient, patient cannot be forced to engage in this. SW spoke with patient and explained the benefits of rehab. Patient stated that the services sounded good, but stated that she did not want to stay at the hospital any longer. Patient wanted to go home. DIMPLE consulted with doctor, nurse Dewayne and supervisor correspondence section Regina Saldana. DIMPLE then spoke with Destiny once again. DIMPLE informed Destiny that patient cannot be held against her will. SW stated that she will provide resources for patient and her family members. DIMPLE advised family to call insurance to inquire about services that patient can receive and stated that if patient were on Medicare, then finding placement in the future might be easier. DIMPLE informed family that, because patient lives alone, SW will have to file an APS report, which the family stated was fine. Destiny then stated that her and pt's grandson is on his way to sweet pickled fruit maker the patient. Destiny stated that the family has decided it might be a good idea to have patient move in with them and then they can become the caregivers. Destiny stated that she spoke with insurance and that might be a good way to go.
[2017-02-17 16:34] VITALS: BP 159/78
--- NOTE | 2017-02-17 16:49 | NUR ---
ELISEO MARTIN NOTES PSYCH HOLD REMOVED BY DR. BOLDEN. NO SI/HI, AVH. POOR APPEITITE. REFUSED PILLS. PLAN FOR CLINICIAN ONCOLOGY. CARROL AND NEIGHBOR CHECK ON PT TWICE DAILY. CARROL STATES HE WILL BE MOVING IN WITH PT. DIRECTOR CREDIT RISK ACCOMPANIED GRANDSON AND PT TO PVT CAR. PT GO HOME. Addendum: 02/17/17 at 1749 by SANDRINE SALAS RN PT. DISCHARGE AMA. DENIES SUICIDAL AND HOMICIDAL.
--- NOTE | 2017-02-17 17:01 | NUR ---
Discharge Note Patient was discharged home to [address] [facility] [address] [facility], [address]. Patients grandsonDonte [phone] picked patient up from the hospital and transported her via private vehicle. Patient and patients family was provided a list of extensive resources, which included this list: Nursing & Rehab Facilities Contact insurance for list of contracted agencies and contact insurance for home health / caregiver option : [[facility]] [place] contracted via [facility] / [facility] insurance No beds available, but check back within a week, ask to speak with admissions [address] [place], [place] [id number] [facility] [address] [place], [place] [id number] [facility] [address] [place], [place] [id number] [facility] [address] [place], [place] [id number] [facility] [address] [place], [place] [id number] [facility] [address] [place], [place] [id number] Treatment Centers : Drugs & Alcohol [facility] Address: [address] [place] [address] [facility] Address: [address] [place] [address] Alcoholic Anonymous Meetings [facility] [address] [facility]. Mondays at 11:30am [address] [facility] [address] Mondays at 7:30pm [facility] [address]/[address] [facility] Fridays at 9am SW contacted insurance agency and left a voicemail for, both, case luann Szymanski [phone] and for strategic planner [place] [phone] inquiring about arranging a follow up doctors appointment. drop pit worker did not hear anything back but will follow up tomorrow and inform family. drop pit worker will also inform family that home health cannot be arranged because the medical doctor will not sign a patient who left against medical advice. drop pit worker will provide a list of home health agencies that the family can contact. Addendum: 02/22/17 at 0841 by KHURRAM MUSA Please note that DIMPLE also filed an APS report.
--- NOTE | 2017-02-18 08:33 | NUR ---
WOUND CARE CONSULT: (LATE ENTRY) PT SEEN 02/07/17 FOR SKIN ASSESSMENT. PT NOTED TO HAVE SOME DISCOLORATION OF SKIN WITH FEW SCRATCH BROWNE. PT STATED THAT SHE SCRATCHES HERSELF AT TIMES. PT INCONTINENT. ALL SKIN PROTECTION MEASURES IN PLACE AND DISCUSSED WITH NURSING STAFF. MD IN AGREEMENT WITH PLAN OF CARE.
--- NOTE | 2017-02-18 16:36 | NUR ---
UR REVIEW: DIMPLE faxed over discharge summary to Stephon [phone] / fax number [phone] AUTH#[id number]
[2017-02-22] MEDS ORDERED: ESCITALOPRAM OXALATE (10 MG) 10 MG TABLET PO SCH (11:30)
[2017-02-22] MEDS ORDERED: QUETIAPINE FUMARATE 25 MG TABLET PO SCH (22:00)
== END 2017-02-17 16:50 | disposition left against medical advice (07) | DRG 881 ==
LOC: GPS 15:18
PROVIDERS: ADMIT Psychiatry & Neurology Psychiatry; ATTEND Psychiatry & Neurology Psychiatry
DX: F32.9 Major depressive disorder, single episode, unspecified (principal); N17.0 Acute kidney failure with tubular necrosis; F10.24 Alcohol dependence with alcohol-induced mood disorder; Z91.14 Patient's other noncompliance with medication regimen; E03.9 Hypothyroidism, unspecified; F29 Unspecified psychosis not due to a substance or known physiological condition; Y90.9 Presence of alcohol in blood, level not specified; E04.1 Nontoxic single thyroid nodule; F41.9 Anxiety disorder, unspecified; R62.7 Adult failure to thrive; Z79.899 Other long term (current) drug therapy; Z81.8 Family history of other mental and behavioral disorders; Z73.6 Limitation of activities due to disability; I11.9 Hypertensive heart disease without heart failure
CPT/HCPCS: 36415; 80053-TC; 80061-TC; 84443-TC; 87081-TC

== ENCOUNTER 2017-02-21 17:54 | Inpatient (IN) | payer OTHER ==
[~2017-02-21] VITALS: Ht 160 cm; Wt 44.9 kg
[~2017-02-21 17:54] MED LIST: CLON1PAT TD; LEVO125T8 PO; LISI10TA5 PO
--- NOTE | 2017-02-21 17:54 | NUR ---
BIB RA - WAS COVERED WITH FECES TAKING BENADRYL CAPS WHEN SHE RAN OUT OF VODKA(9 CAPS TODAY), NAD NOTED, VSS, RESP EVEN AND UNLABORED, WAITING FOR MD FISHER.
[2017-02-21] MEDS ORDERED: IV NS 0.9% 1,000 ML BAG IV ONE (19:30)
[2017-02-21 19:56] LABS: SERUM AMMONIA < 10 umol/L (11-32)
[2017-02-21 20:01] LABS: BASOPHILS # (AUTO) 0.1 /CMM (0.0-0.2); BASOPHILS % (AUTO) 0.8 % (0.0-2.0); EOSINOPHILS # (AUTO) 0.2 /CMM (0.0-0.7); EOSINOPHILS % (AUTO) 3.7 % (0.0-6.0); HEMATOCRIT 34 % (33-45); HEMOGLOBIN 11.7 g/dL (11.5-14.8); LYMPHOCYTES # (AUTO) 1.3 /CMM (0.8-4.8); LYMPHOCYTES % (AUTO) 20.1 % (20.0-44.0); MEAN CORPUSCULAR HEMOGLOBIN 35 PG (26.0-33.0); MEAN CORPUSCULAR HGB CONC 34 g/dl (31.0-36.0); MEAN CORPUSCULAR VOLUME 103 fL (82-100); MONOCYTES # (AUTO) 0.3 /CMM (0.1-1.30); MONOCYTES % (AUTO) 4.5 % (2.0-12.0); NEUTROPHILS # (AUTO) 4.6 /CMM (1.8-8.9); NEUTROPHILS % (AUTO) 70.9 % (43.0-81.0); PLATELET COUNT (AUTO) 241 /CMM (150-450); RDW COEFFICIENT OF VARIATION 13.8 (11.5-15.0); RED BLOOD CELL COUNT(AUTO) 3.35 MIL/uL (4.0-5.2); TROPONIN I < 0.017 ng/mL (0.00-0.056); WHITE BLOOD COUNT (AUTO) 6.4 K/uL (4.3-11.0)
[2017-02-21 20:15] LABS: ALANINE AMINOTRANSFERASE 17 U/L (12-78); ALBUMIN 2.8 g/dL (3.4-5.0); ALCOHOL, BLOOD < 3 mg/dL (0-0); ALKALINE PHOSPHATASE 88 U/L (46-116); ASPARTATE AMINOTRANSFERASE 34 U/L (15-37); BILIRUBIN,DIRECT 0.1 mg/dL (0.0-0.2); BILIRUBIN,TOTAL 0.4 mg/dL (0.2-1.0); CALCIUM, SERUM 9.2 mg/dL (8.5-10.1); CARBON DIOXIDE 30 mmol/L (21-32); CHLORIDE 101 mmol/L (98-107); CREATININE 0.7 mg/dL (0.6-1.3); GLUCOSE 114 mg/dL (74-106); SODIUM SERUM 139 mmol/L (136-145); TOTAL PROTEIN, SERUM 7.3 g/dL (6.4-8.2); UREA NITROGEN, BLOOD 16 mg/dL (7-18)
[2017-02-21 20:19] LABS: INR 1.01 (0.87-1.13); PROTHROMBIN TIME 10.5 SECS (9.5-12.7)
[2017-02-21 20:22] LABS: ACETAMINOPHEN 0 ug/ml (10-30); POTASSIUM 2.7 mmol/L (3.5-5.1); SALICYLATE 1.4 mg/dL (2.8-20.0)
--- NOTE | 2017-02-21 20:28 | NUR ---
CALLED [facility], DEWER WAS PAGED.
[2017-02-21] MEDS ORDERED: POTASSIUM CHLORIDE 20 MEQ TAB.PRT.SR PO ONE ×2 (20:30→20:38)
[2017-02-21] MEDS ORDERED: POTASSIUM CL. PREMIX PERIPHER. 50 ML ONE (20:37)
[2017-02-21] MEDS: POTASSIUM CL. PREMIX PERIPHER. 50 ML IV SCH ×4 (20:45→23:24)
[2017-02-21 21:20] LABS: APPEARANCE,URINE CLEAR (CLEAR); BILIRUBIN,URINE 1+ (NEGATIVE); BLOOD, URINE 1+ Ery/uL (NEGATIVE); COLOR,URINE YELLOW (YELLOW); KETONES,URINE TRACE (NEGATIVE); LEUKOCYTE ESTERASE ,URINE 1+ (NEGATIVE); NITRITE, URINE NEGATIVE (NEGATIVE); PROTEIN,URINE NEGATIVE (NEGATIVE); UGLUCOSE NEGATIVE (NEGATIVE); UROBILINOGEN,URINE 0.2 EU/dL (0.2)
[2017-02-21 21:33] LABS: BACTERIA,URINE Many /HPF (None Seen); SQUAMOUS EPITHELIAL CELL,UR Moderate /HPF (None Seen)
[2017-02-21 21:42] LABS: THYROID STIMULATING HORMONE 68.469 uIU/mL (0.358-3.74)
[2017-02-21] MEDS ORDERED: POTASSIUM CL. PREMIX PERIPHER. 150 ML ONE (21:44)
--- NOTE | 2017-02-21 23:00 | NUR ---
WILEY CATH INSERTED WITH STERILE TECHNIQUE. CLOUDY YELLOW URINE OUTPUT.
--- NOTE | 2017-02-22 01:36 | NUR ---
Patient ready to transport to [facility] in stable condition. VITAL SIGNS WITHIN NORMAL LIMITS. IV removed. Catheter intact and site benign. Pressure and 4x4 applied to site. No bleeding noted. funez cath removed.
[2017-02-22 01:45] VITALS: BP 185/122
--- NOTE | 2017-02-22 01:45 | NUR ---
GPS ADMISSION NOTE, RECEIVED PATIENT FROM HOME. PATIENT ARRIVED ON THIS UNIT AT 0145 VIA STRETCHER WITH 1 LEI MAKER ESCORT. PATIENT ADMITTED ON A 5150 HOLD FOR GD. PER HOLD PATIENT WAS FOUND BY HER GRANDSON COVERED IN FECES WITH AN EMPTY BOTTLE OF VODKA FOUND ON THE FLOOR NEAR BY. PATIENT LIVES ALONE, HAS POOR INSIGHT, AND IMPAIRED JUDGEMENT. PATIENT HAS NO PLAN FOR SELF CARE AT THIS TIME. THE 5150 WAS REVIEWED AND THE DOCUMENTATION IN THE 5150 HOLD APPEARS TO REFLECT THE PRESENTATION OF THE PATIENT. UPON FACE TO FACE ASSESSMENT PATIENT IS CURRENTLY LYING IN BED AWAKE, HAS A NO COMPLAINT OR S/S OF PAIN AT THIS TIME. PATIENT IS DISPLAYING NO S/S OF APPARENT DISTRESS. PATIENT BREATHING IS UNLABORED WITH EQUAL RISE AND FALL OF THE CHEST. PATIENT IS ALERT AND ORIENTATED X 1 ON ROOM AIR. PATIENT ASSISTED WITH TURING AND REPOSITIONING Q2HR AND PRN FOR COMFORT AND CIRCULATION. PATIENT HAS NO NEEDS AT THIS TIME. PATIENT IS NOTED TO BEING ANXIOUS, CONFUSED, DISHEVELED, DISORGANIZED, COOPERATIVE AT TIMES, AND NEEDS REDIRECTION. PATIENT IS UNDER THE PSYCHIATRIC CARE OF DR. VEGA AND THE MEDICAL CARE OF DR. CASTILLO. PATIENT BELONGINGS WERE INVENTORIED AND CHECKED FOR CONTRABAND. ALL CONTRABAND REMOVED AND STORED IN PATIENT HALLWAY LOCKER. PATIENT ADVANCED DIRECTIVES PREFERENCE, IMMUNIZATIONS QUESTIONER, NECESSARY PAPERWORK, AND SKIN ASSESSMENT COMPLETED. PATIENT ORIENTATED TO ROOM, FLOOR, AND STAFF WITH ALL QUESTIONS ANSWERED. PATIENT EDUCATED ON THE USE OF THE CALL DINH. PATIENT BED SIDE RAILS ARE UP X 2 FOR SAFETY. PATIENT BED IS LOCKED, LOW AND I WILL CONTINUE TO MONITOR THIS PATIENT Q 15 MIN WITH THE HELP OF STAFF TO MAINTAIN SAFETY.
[2017-02-22] MEDS ORDERED: MAGNESIUM HYDROXIDE 30 ML UDC PO PRN (02:30)
[2017-02-22] MEDS ORDERED: LORAZEPAM 0.5 MG TABLET PO PRN (02:30)
[2017-02-22] MEDS ORDERED: MAG HYDROX/AL HYDROX/SIMETH 30 ML UDC PO PRN (02:30)
--- NOTE | 2017-02-22 02:46 | NUR ---
GPS RN NOTE, PATIENT VITAL SIGNS ARE FOLLOWS TEMP 98.3, P 84, RESPIRATIONS 18, B/P 185/122, SPO2% 99. PATIENT ALSO NEEDS A MED RECON. PAGED [facility] AND INFORMED DR CASTILLO OF MY FINDINGS. DR CASTILLO ORDERED GIVE CLONIDINE 0.2MG PO ONCE AND STATED THAT HE WILL DO THE MED RECON. ALL ORDERS NOTED AND CARRIED OUT WILL CONTINUE TO MONITOR THIS PATIENT.
[2017-02-22] MEDS ORDERED: CLONIDINE HCL 0.1 MG TABLET ONE (02:49)
[2017-02-22] MEDS ORDERED: CLONIDINE HCL 0.1MG/24H PTWK 1 EA PATCH TD SCH ×2 (03:00→12:00)
[2017-02-22] MEDS ORDERED: CLONIDINE HCL 0.1 MG TABLET PO ONE (03:00)
[2017-02-22 04:28] VITALS: BP 122/63
[2017-02-22] MEDS ORDERED: Z GUARD REMEDY 4 OZ OINT TP PRN (04:30)
[2017-02-22] MEDS: LEVOTHYROXINE SODIUM 125 MCG TABLET PO SCH (07:30)
[2017-02-22 08:00] VITALS: BP 149/82
[2017-02-22] MEDS: LISINOPRIL (10MG) 10 MG TABLET PO SCH (09:00)
[2017-02-22 09:42] LABS: CREATININE 0.8 mg/dL (0.6-1.3)
--- NOTE | 2017-02-22 10:23 | NUR ---
WOUND CARE CONSULT: PT PRESENTS WITH AREAS OF REDNESS INCLUDING DORSAL FEET AND RT KNEE AREA, PRESENT ON ADMISSION. HEALED AREAS WITH SCARRING/STAINING OF SKIN TO LOWER BACK NOTED. ALL SKIN PROTECTION MEASURES IN PLACE AND DISCUSSED WITH NURSING STAFF. WILL SEE PRN. ALAN IN AGREEMENT WITH PLAN OF CARE. Addendum: 02/22/17 at 1025 by MARKO COMBS WNDNU Amended: Links added.
[2017-02-22] MEDS ORDERED: LEVOFLOXACIN (500MG) 500 MG TABLET PO SCH (10:30)
[2017-02-22] MEDS ORDERED: LEVOFLOXACIN (500MG) 500 MG TABLET PO ONE (10:45)
--- NOTE | 2017-02-22 11:14 | NUR ---
SW attests that the information obtained by the previous assessment, conducted four days ago, is still valid. There have been no new changes in patient's history since her discharge from [facility] four days ago [02/17/17]. When public health social worker met with patient she appeared to be alert and oriented x4. Patient exhibited calm motor activity. Patient expressed belief that her grandson was conspiring to take her apartment away. Patient states that she had some feces on her hand because she was attempting to clean the bathroom and had called her grandson for help. Patient denies any alcohol abuse, stating that she only has a glass or two at night to help with sleep and appetite. Patient states that a doctor had informed her that it was okay to drink a couple of glasses a day. Patient states that she will "absolutely not" go to a chcf. Patient states that she is not interested in any treatment programs/options/resources because she does not have any problems with alcohol consumption. Patient denied suicidal and homicidal ideation. Patient denied auditory/visual hallucinations. Patient stated that she wanted to return home, stating that she can care for herself, has no problems with alcohol and sees no need for any treatment programs or nursing homes. SW currently waiting for authorization from patient's insurance, [employer] for hospital days.
--- NOTE | 2017-02-22 11:19 | NUR ---
[id number]: NOTIFIED DR. VELA ABOUT PHARMACY CALLING REGARDING CATAPRES 0.1 MG/[address] VELA WANTS TO HOLD FOR NOW CATAPRES 0.1 MG/24 HOUR PATCH AND MONITOR PT'S BLOOD PRESSURE. ALSO INFORMED DR. VELA PT IS COMPLAINING OF LOWER LEG PAIN AND REDNESS NOTED BY THE WOUND NURSE. NO NEW ORDERS GIVEN AT THIS TIME
[2017-02-22] MEDS: ACETAMINOPHEN 325 MG TABLET PO PRN ×2 (11:25→20:56)
--- NOTE | 2017-02-22 12:38 | NUR ---
SW attempted to contact pt's grandson, Donte at [phone]. Donte did not answer phone and no voicemail option was available. SW then called and left a voicemail for Destiny, pt's tvczjlpo-wn-xmy at [phone]. DIMPLE will follow up.
[2017-02-22] MEDS: BOOST PLUS FOOD-CHOCLATE 237 ML BOX PO SCH ×2 (14:16→16:52)
--- NOTE | 2017-02-22 15:11 | NUR ---
UR Review: DIMPLE faxed over clinicals to Stephon from [facility], , fax number [phone]. DIMPLE called Stephon and asked if anything else was needed. Stephon stated "no" and informed DIMPLE that patient was approved for three days and that Stephon would be in touch on the third day.
[2017-02-22 15:42] VITALS: BP 100/69
--- NOTE | 2017-02-22 17:18 | NUR ---
[id number]: NOTIFIED DR. VELA ABOUT PT HAVING GRAM STAIN RESULTS FROM BLOOD CULTURE IS GRAM POSITIVE RODS. NO NEW ORDERS GIVEN AT THIS TIME.
[2017-02-22 20:07] VITALS: BP 139/80
[2017-02-22] MEDS: ZOLPIDEM TARTRATE 5 MG TABLET PO PRN (20:56)
[2017-02-22] MEDS: QUETIAPINE FUMARATE 25 MG TABLET PO SCH (21:14)
[2017-02-23] MEDS: LEVOTHYROXINE SODIUM 125 MCG TABLET PO SCH (07:30)
[2017-02-23 07:53] LABS: CHOLESTEROL 176 mg/dL (<200); HDL CHOLESTEROL 28 mg/dL (40-60); LDL 79 mg/dL (0-99); TRIGLYCERIDES 216 mg/dL (30-150)
[2017-02-23 08:00] VITALS: BP 143/82
[2017-02-23] MEDS: ESCITALOPRAM OXALATE (10 MG) 10 MG TABLET PO SCH (09:16)
[2017-02-23] MEDS: LISINOPRIL (10MG) 10 MG TABLET PO SCH (09:30)
[2017-02-23] MEDS: BOOST PLUS FOOD-CHOCLATE 237 ML BOX PO SCH ×2 (09:36→17:51)
[2017-02-23] MEDS: LEVOFLOXACIN (250MG) 250 MG TABLET PO SCH (11:00)
--- NOTE | 2017-02-23 11:41 | NUR ---
SW made a second attempt to contact pt's grandson Donte at [phone]. SW left a voicemail encouraging Donte to call her back. SW left contact information.
--- NOTE | 2017-02-23 13:20 | NUR ---
SW spoke with patient. Patient was in agreement for a skilled nursing. SW faxed over the following facilities [SW also spoke with Stephon form Insurance who stated that they will sign an NICO with accepting facility]: [facility] in [place] : [phone] / fax #[phone] [facility] [address] [place] [address] / fax [phone] [facility], / fax [phone] DIMPLE was informed that no female beds were available [facility], / fax [phone] DIMPLE will follow up. Addendum: 02/23/17 at 1328 by KHURRAM MUSA Please note that DIMPLE was NOT informed that there were no female beds available at [facility].
--- NOTE | 2017-02-23 13:23 | NUR ---
DIMPLE spoke with pt's jtvwijtbztcnq-nw-dif, Destiny [phone] and informed her patient had consented to group home. DMIPLE also provided Destiny with the phone number to inquire about disenrolling pt from O - managed medicare.
--- NOTE | 2017-02-23 13:30 | NUR ---
DIMPLE spoke with Adrienne from [facility], / fax [phone] who informed SW that the facility was contracted with [facility] [which is pt's plan] and that they will start reviewing the packet.
[2017-02-23 16:00] VITALS: BP 136/80
[2017-02-23 20:00] VITALS: BP 143/84
[2017-02-23] MEDS: QUETIAPINE FUMARATE 25 MG TABLET PO SCH (22:00)
--- NOTE | 2017-02-23 23:59 | NUR ---
GPS/RN PATIENT IS SLEEPING AT THIS TIME, AROUSABLE, APPEAR COMFORTABLE, NO DISTRESS NOTED, CALL LIGHT IN REACH. WILL CONTINUE TO MONITOR.
--- NOTE | 2017-02-24 06:08 | NUR ---
GPS/RN SLEEPING, AROUSABLE, APPEAR COMFORTABLE, NO DISTRESS NOTED, ALL NEEDS ATTENDED AT THIS TIME. WILL CONTINUE TO MONITOR.
[2017-02-24 08:00] VITALS: BP 160/99
[2017-02-24] MEDS: BOOST PLUS FOOD-CHOCLATE 237 ML BOX PO SCH ×2 (08:34→16:47)
[2017-02-24] MEDS: ESCITALOPRAM OXALATE (10 MG) 10 MG TABLET PO SCH (08:35)
[2017-02-24] MEDS: LISINOPRIL (10MG) 10 MG TABLET PO SCH (08:35)
[2017-02-24] MEDS: LEVOTHYROXINE SODIUM 125 MCG TABLET PO SCH (08:35)
--- NOTE | 2017-02-24 10:05 | NUR ---
DIMPLE followed up with: [facility]: per Destiny in admissions, [place] cannot accommodate patient's needs [facility]: Per Dayna in admissions, no female beds available until next week but will keep referral on file [facility]: Per Kalani in admissions, janis has refused to accept patient Joie Foster: per outpatient receptionistAdrienne from admissions is in a meeting, will call back later.
--- NOTE | 2017-02-24 10:40 | NUR ---
DIMPLE faxed over the following facilities: [facility] [address] [facility] [place] [address] / fax [phone] [id number] / [phone] [facility] fax number [phone] [address] [facility] [phone] / fax number [phone]
[2017-02-24] MEDS: LEVOFLOXACIN (250MG) 250 MG TABLET PO SCH (11:47)
--- NOTE | 2017-02-24 14:13 | NUR ---
SW followed up with: [facility] per janis Diehl has not reviewed yet. Will call back once decision is reached. [address] [place] [address] / fax [phone] DECLINED Per Giovanna in admissions, patient was declined. No reason specified. [address] [id number] / [phone] PENDING per veterinary receptionist, admissions coordinators are participating in Webinar..call back in half hour. SW will follow up. [facility] fax number [phone] [place] [address] PENDING Per Ron in admissions, will review packet and will call SW back . [facility] [phone] / fax number [phone] DECLINED Per Ai, stevo bed availability for HMO insurances
--- NOTE | 2017-02-24 14:24 | NUR ---
DIMPLE faxed over inquiries to: [facility] in [place] : [phone] / fax #[phone] [phone] / fax number [phone] [facility] : [phone] / fax [phone]
--- NOTE | 2017-02-24 15:56 | NUR ---
DIMPLE followed up with: [facility] [phone]: left message for admissions to call back. [facility] in [place] : [phone] / fax #[phone] DIMPLE left a message for Joceline in administration. [facility] [address] [place] [phone] / fax number [phone] per outpatient receptionist, there are no beds available at the facility. [facility] : [phone] / fax [phone] DIMPLE spoke to Wen in admissions who stated she will review the packet and call back.
[2017-02-24 16:00] VITALS: BP 170/99
--- NOTE | 2017-02-24 16:07 | NUR ---
DIMPLE spoke with pt's [id number]-gv-fhk, Destiny [phone] and explained that while patient does want placement, it is difficult with an HMO. DIMPLE stated that she faxed numerous facilities but hasn't had much luck. Destiny stated that she understood the reasons for that and thanked DIMPLE for all her help. DIMPLE stated that patient is authorized though tomorrow, but there is no guarantee that they will authorize through the weekend. Destiny stated that the family is attempting to dis-enroll patient. DIMPLE stated that she will update family if there is any news.
--- NOTE | 2017-02-24 16:20 | NUR ---
FRAMING MACHINE TENDER-NOTES RECIEVED CALL FROM DR. VELA WITH T.O ORDER OF CLONIDINE 0.1MG P.O Q6HR. PRN FOR >160 SBP AND ALSO STATED OK TO GIVE CLONIDINE PATCH ORDERED. NOTED AND CARRIED OUT.
--- NOTE | 2017-02-24 16:29 | NUR ---
DIMPLE faxed over inquiry to : [facility], Address: [address] [place], [place] [address]Zlfzc: to admissions. Fax number: [phone] [place] [address] [address] / fax number [facility] : [phone] / fax [phone] SW to follow up tomorrow morning
[2017-02-24] MEDS ORDERED: CLONIDINE HCL 0.1 MG TABLET PO PRN (16:30)
[2017-02-24] MEDS ORDERED: CLONIDINE HCL 0.1MG/24H PTWK 1 EA PATCH TD SCH (17:00)
[2017-02-24 18:36] VITALS: BP 125/75
[2017-02-24 20:00] VITALS: BP 149/80
[2017-02-24] MEDS: QUETIAPINE FUMARATE 25 MG TABLET PO SCH (21:45)
[2017-02-24] MEDS: ZOLPIDEM TARTRATE 5 MG TABLET PO PRN (21:47)
--- NOTE | 2017-02-25 00:14 | NUR ---
GPS/RN-PATIENT REMAINS AWAKE ,AMBIEN 5MG.PO GIVEN ORDERED.
[2017-02-25 08:00] VITALS: BP 125/66
[2017-02-25] MEDS: ESCITALOPRAM OXALATE (10 MG) 10 MG TABLET PO SCH (08:42)
[2017-02-25] MEDS: LEVOTHYROXINE SODIUM 125 MCG TABLET PO SCH (08:42)
[2017-02-25] MEDS: LISINOPRIL (10MG) 10 MG TABLET PO SCH (08:43)
[2017-02-25] MEDS: BOOST PLUS FOOD-CHOCLATE 237 ML BOX PO SCH ×2 (09:37→16:40)
--- NOTE | 2017-02-25 10:15 | NUR ---
SW followed up with: [facility] fax number [phone] [facility] [place] Per Ron, patient has been declined [facility] in [place] : [phone] / fax #[phone] per Chandana, no beds available [facility], Address: [address] [place] [address]Tcycl: to admissions. Fax number: [phone] Per Abhijeet, under review. Will call back. [place] [address] [address] / fax number Per Tonya, patient has been denied [facility] : [phone] / fax [phone] SW needs to re-fax paperwork
--- NOTE | 2017-02-25 10:32 | NUR ---
DIMPLE re-faxed inquiry to [facility] : [phone] / fax [phone]
--- NOTE | 2017-02-25 11:00 | NUR ---
Summary of all facilities faxed / status : [facility] in [place] : [phone] / fax #[phone] DENIED Per Dayna in admissions, no female beds available until next week but will keep referral on file [facility] [address] [address] [place], [place] [address] / fax [phone] DENIED Per Kalani in admissions, don has refused to accept patient [facility], / fax [phone] PENDING Per Adrienne in admissions, will review and call back [facility], / fax [phone] DENIED Per Destiny in admissions, [place] cannot accommodate patient's needs [facility] [address] [place] [address] / fax [phone] DECLINED Per Giovanna in admissions, patient was declined. No reason specified. [address] [id number] / [phone] PENDING SW left message for admissions to call back. [facility] fax number [phone] [place] [address] DECLINED Per Ron in admissions, patient has been declined [facility] [phone] / fax number [phone] DECLINED Per Ai, no bed availability for HMO insurances [facility] in [place] : [phone] / fax #[phone] DECLINED Per Chandana, no beds are available [facility] [place] [phone] DECLINED Per mine engineering supervisor, there are no beds available at the facility. [facility] : [phone] / fax [phone] PENDING per Wen, will call back once packet is reviewed [facility], Address: [address] [place] [id number]: PENDING Per Abhijeet, under review, will call once decision is reached [place] [address] [address] / fax number DECLINED Per giselle, will not accept patient [facility] : [phone] / fax [phone] PENDING under review
--- NOTE | 2017-02-25 11:01 | NUR ---
DIMPLE spoke with Stephon from [facility], , fax number [phone]. Stephon informed DIMPLE that she is not sure if the patient will be authorized through the weekend. DIMPLE inquired about nursing services / home rachel services / caregivers and Stephon stated that the insurance does not work with those types of services and that the family will have to pay out of pocket. DIMPLE stated that, per Dr. Jackman, if patient returns home, she will more than likely end up back at the hospital. Stephon asked DIMPLE to fax over psych progress notes, as well as a list of facilities that DIMPLE has faxed. DIMPLE also asked Stephon if she could please fax over a list of facilities that the insurance works with, as DIMPLE had requested this a couple of times before. Stephon stated that they do work with SNFs, but was not sure which ones and stated that she had to look into that. DIMPLE faxed over the requested paperwork to Stephon. DIMPLE will also follow up with family.
[2017-02-25] MEDS: LEVOFLOXACIN (250MG) 250 MG TABLET PO SCH (11:08)
--- NOTE | 2017-02-25 12:02 | NUR ---
DIMPLE spoke with pt's bxgvloceajgyy-pf-lxd, Destiny [phone] and explained the situation regarding insurance / authorization. DIMPLE stated that there is a chance patient will have to go home today. Destiny was understanding and stated that the family is working to disenroll the pt and put her on medicare, so that it may help in the future.
--- NOTE | 2017-02-25 13:34 | NUR ---
DIMPLE attempted to reach Stephon from [facility], , fax number [phone]. The number went straight to voicemail. DIMPLE left a message inquiring about the authorization: Has a decision been reached about extending authorization? Is patient authorized through the night or does she have to leave the hospital today?
--- NOTE | 2017-02-25 15:08 | NUR ---
DIMPLE was contacted by Stephon from [facility], . Stephon stated that they can authorize patient through tomorrow so that the family has time to pick her up and take her home. DIMPLE inquired once again about home health services and Stephon stated that there actually are companies they can do an NICO with, but physical therapy notes need to be faxed to Stephon. DIMPLE stated that she did fax PT notes, along with psych progress notes and a list of facilities that DIMPLE had looked into at approximately 11:30am. Stephon stated she will check on that and give SW a call back. DIMPLE informed family of this. Destiny, pt's nyfggnkgeufyf-eb-hog stated that they family can pick patient up around 4pm on Tuesday. She also stated that she is in the process of putting patient on straight medi-care.
--- NOTE | 2017-02-25 15:18 | NUR ---
UR REVIEW: DIMPLE spoke with Stephon from [facility], , fax number [phone]. Stephon stated that they can authorize patient through Tuesday and that the authorization number would be the same. Earlier in the day, DIMPLE faxed over progress notes, PT assessment notes and a list of SNFs she was looking into. Authorization Number is #[id number]
[2017-02-25 16:20] VITALS: BP 120/61
--- NOTE | 2017-02-25 16:36 | NUR ---
Discharge Note Patient will be discharged back home to [address] [facility] [address] [facility], [address]. Patients grandsonDonte [phone] picked patient up from the hospital and transported her via private vehicle. Patient was provided a list of resources for her alcohol dependence. Please note that SW attempted to find placement for patient at a [facility]. However, it was difficult due to the patient being on HMO-managed Medicare. SW was in constant contact with Stephon from insurance [[employer] / [employer]] [phone] / fax number [phone]. However, SW was unable to attain a list of contacted SNFs. SW requested for Stephon to look into home health services / caregiver services and faxed over PT assessment notes. SW also requested information for aftercare because the follow-up appointments needed to be made with facilities/doctors that were contacted through the insurance. Patient was encouraged to present at Alcoholic Anonymous Meetings [facility] [address] [facility] on February 28 at 11:30am. Patient was also encouraged to present at 9am for intake on March 01 2017 at [facility] [address] [place], [place] [address], . SW encouraged family to look into dis-enrolling patient form HMO-managed Medicare and putting her on straight Medicare, as it would open up options for future placement. Destiny, patients jiumtuoyywjzf-fm-pnm, stated that she was in the process of doing so and was in communication with the insurance company.
[2017-02-25 20:00] VITALS: BP 138/85
[2017-02-25] MEDS: QUETIAPINE FUMARATE 25 MG TABLET PO SCH (21:06)
[2017-02-25] MEDS: ZOLPIDEM TARTRATE 5 MG TABLET PO PRN (22:05)
[2017-02-26 08:00] VITALS: BP 157/81
--- NOTE | 2017-02-26 08:45 | NUR ---
DR. VEGA GAVE AND ORDER TO D/C PT. TODAY. PT. WITHOUT DISTRESS, DENIES SUICIDAL AND HOMICIDAL AND TO FOLLOW UP WITH PSYCH AND MEDICAL DOCTORS. CALLED GRANDGUILLAUME MANN AT [phone] AND SAID HE WILL COME AT 11:00 TO SPORTS MEDICINE TRAINER THE PT.
[2017-02-26] MEDS: ESCITALOPRAM OXALATE (10 MG) 10 MG TABLET PO SCH (08:49)
[2017-02-26] MEDS: LISINOPRIL (10MG) 10 MG TABLET PO SCH (08:50)
[2017-02-26] MEDS: BOOST PLUS FOOD-CHOCLATE 237 ML BOX PO SCH ×2 (08:59→17:17)
[2017-02-26] MEDS: LEVOTHYROXINE SODIUM 125 MCG TABLET PO SCH (09:00)
[2017-02-26] MEDS: LEVOFLOXACIN (250MG) 250 MG TABLET PO SCH (11:19)
[2017-02-26 16:17] VITALS: BP 157/84
--- NOTE | 2017-02-26 18:39 | NUR ---
GPS/RN PT REPEATEDLY REFUSED TO LET THE NURSE TO TAKE THE PICTURES. PT IS READY FOR DISCHARGE. PRESCRIPTIONS AND EXIT CARE INSTRUCTIONS ARE IN THE CHART. FAMILY MEMBER EXPECTED TO COME AFTER 1900
--- NOTE | 2017-02-26 20:43 | NUR ---
Discharge Note Patients sonDonte picked patient up accompanied by the director of consulting services via wheelchair with her belongings and was provided a list of resources for her alcohol dependence and medications. Pt denies si/hi at this time, v/s wnl, respirations even and unlabored, no sob, no complain of pain/discomfort, no acute distress noted. Patient stable upon discharge.
[2017-02-26] MEDS: QUETIAPINE FUMARATE 25 MG TABLET PO SCH (20:57)
== END 2017-02-26 20:50 | disposition home or self-care (01) | DRG 885 ==
LOC: ER 17:55 → GPS 22:27
PROVIDERS: ADMIT Psychiatry & Neurology Psychiatry; ATTEND Family Medicine
DX: F39 Unspecified mood [affective] disorder (principal); T51.0X1A Toxic effect of ethanol, accidental (unintentional), initial encounter; E44.0 Moderate protein-calorie malnutrition; F10.27 Alcohol dependence with alcohol-induced persisting dementia; F03.90 Unspecified dementia, unspecified severity, without behavioral disturbance, psychotic disturbance, mood disturbance, and anxiety; N39.0 Urinary tract infection, site not specified; F10.259 Alcohol dependence with alcohol-induced psychotic disorder, unspecified; Z68.1 Body mass index [BMI] 19.9 or less, adult; B96.1 Klebsiella pneumoniae [K. pneumoniae] as the cause of diseases classified elsewhere; E03.9 Hypothyroidism, unspecified; F41.9 Anxiety disorder, unspecified; I10 Essential (primary) hypertension; Z79.899 Other long term (current) drug therapy; Y90.0 Blood alcohol level of less than 20 mg/100 ml; Z73.6 Limitation of activities due to disability; B96.89 Other specified bacterial agents as the cause of diseases classified elsewhere; F29 Unspecified psychosis not due to a substance or known physiological condition
CPT/HCPCS: 36415; 70450-TC; 71010-TC; 80048-TC; 80061-TC; 80076-TC; 80305; 81000-TC; 82140-TC; 82565-TC; 83605-TC; 84132-TC; 84439-TC; 84443-TC; 84479; 84484-TC; 85025-TC; 85730-TC; 87040-TC; 87081-TC; 87086-TC; 87186-TC; G0480; J3480; J7030

== ENCOUNTER 2017-10-24 18:34 | Emergency (ER) | payer OTHER ==
[~2017-10-24] VITALS: Ht 157.5 cm; Wt 46.3 kg
--- NOTE | 2017-10-24 18:43 | NUR ---
PT WAS ASSISTED VIA WHEELCHAIR TO ED BED 11. PT IS C/O FEELING WEAK, BILATERAL KNEE PAIN, S/P FALL 3 TIMES TODAY IN THE AM. NAD VSS RR EVEN AND UNLABORED. PENDING ER MD EVALUATION
[2017-10-24] MEDS ORDERED: hydrOXYzine 10 MG TABLET PO ONE (19:00)
[2017-10-24] MEDS ORDERED: ACETAMINOPHEN ES 500 MG TABLET PO ONE (19:00)
[2017-10-24] MEDS ORDERED: ACETAMINOPHEN ES 500 MG TABLET ONE (19:08)
[2017-10-24] MEDS ORDERED: hydrOXYzine 10 MG TABLET ONE (19:10)
--- NOTE | 2017-10-24 19:15 | NUR ---
MEDICATED PATIENT PER MD ORDERS.
[2017-10-24 19:34] VITALS: BP 134/82
--- NOTE | 2017-10-24 19:35 | NUR ---
Patient discharged to home in stable condition. Written and verbal after care instructions given. Patient verbalizes understanding of instruction.
== END 2017-10-24 19:35 | disposition home or self-care (01) ==
LOC: ER 18:37
DX: M25.562 Pain in left knee (principal); M25.561 Pain in right knee; M17.0 Bilateral primary osteoarthritis of knee; I10 Essential (primary) hypertension; F32.9 Major depressive disorder, single episode, unspecified; F10.10 Alcohol abuse, uncomplicated; Y90.0 Blood alcohol level of less than 20 mg/100 ml; Z60.2 Problems related to living alone
CPT/HCPCS: 73564; 99284; A4606; Q0177; Z7610

== ENCOUNTER 2018-07-10 21:45 | Inpatient (IN) | payer MEDICARE, OTHER ==
[~2018-07-10] VITALS: Ht 157.5 cm; Wt 47.2 kg
--- NOTE | 2018-07-10 22:00 | NUR ---
TO BED 4 BIB PARAMEDICS C/O "I TRIED TO CUT MY WRIST TO KILL MYSELF" L WRIST LACERATION NOTED. PT AAOX4 NO ACUTE DISTRESS NOTED, RESP EVEN AND UNLABORED. PT CALM AND COOPERATIVE AT THIS TIME. PENDING ER MD FISHER.
--- NOTE | 2018-07-10 22:18 | NUR ---
PLACE PT ON BEDPAN FOR URINE SAMPLE.
--- NOTE | 2018-07-10 22:25 | NUR ---
URINE SAMPLE COLLECTED AND SENT TO LAB.
--- NOTE | 2018-07-10 22:25 | NUR ---
LUIS BRANHAM CALLED [phone]
--- NOTE | 2018-07-10 22:26 | NUR ---
DOCTOR OF CHIROPRACTIC AT BEDSIDE FOR BLOOD DRAW.
--- NOTE | 2018-07-10 22:30 | NUR ---
GOVIND 216-A
[2018-07-10 22:33] LABS: BASOPHILS # (AUTO) 0.1 /CMM (0.0-0.2); BASOPHILS % (AUTO) 0.9 % (0.0-2.0); EOSINOPHILS % (AUTO) 2.8 % (0.0-6.0); HEMATOCRIT 44 % (33-45); HEMOGLOBIN 14.7 g/dL (11.5-14.8); LYMPHOCYTES # (AUTO) 2.6 /CMM (0.8-4.8); LYMPHOCYTES % (AUTO) 24.5 % (20.0-44.0); MEAN CORPUSCULAR HGB CONC 33 g/dl (31.0-36.0); MEAN CORPUSCULAR VOLUME 92 fL (82-100); MONOCYTES # (AUTO) 0.6 /CMM (0.1-1.30); MONOCYTES % (AUTO) 5.9 % (2.0-12.0); NEUTROPHILS % (AUTO) 65.9 % (43.0-81.0); PLATELET COUNT (AUTO) 185 /CMM (150-450); WHITE BLOOD COUNT (AUTO) 10.6 K/uL (4.3-11.0)
[2018-07-10 22:35] LABS: APPEARANCE,URINE Clear (CLEAR); BILIRUBIN,URINE Negative (NEGATIVE); BLOOD, URINE Negative Ery/uL (NEGATIVE); COLOR,URINE Yellow (YELLOW); KETONES,URINE Negative (NEGATIVE); LEUKOCYTE ESTERASE ,URINE Negative (NEGATIVE); NITRITE, URINE Negative (NEGATIVE); PROTEIN,URINE Negative (NEGATIVE); UGLUCOSE Negative (NEGATIVE); UROBILINOGEN,URINE 0.2 EU/dL (0.2)
[2018-07-10 22:42] LABS: CALCIUM, SERUM 9.3 mg/dL (8.5-10.1); CARBON DIOXIDE 28 mmol/L (21-32); CHLORIDE 105 mmol/L (98-107); CREATININE 0.6 mg/dL (0.6-1.3); GLUCOSE 112 mg/dL (74-106); POTASSIUM 3.6 mmol/L (3.5-5.1); SODIUM SERUM 140 mmol/L (136-145); UREA NITROGEN, BLOOD 27 mg/dL (7-18)
[2018-07-10 22:48] LABS: ALANINE AMINOTRANSFERASE 30 U/L (12-78); ALBUMIN 3.5 g/dL (3.4-5.0); ALCOHOL, BLOOD < 3 mg/dL (0-0); ALKALINE PHOSPHATASE 86 U/L (46-116); ASPARTATE AMINOTRANSFERASE 25 U/L (15-37); BILIRUBIN,DIRECT 0.1 mg/dL (0.0-0.2); BILIRUBIN,TOTAL 0.3 mg/dL (0.2-1.0); TOTAL PROTEIN, SERUM 7.2 g/dL (6.4-8.2)
[2018-07-10 22:49] LABS: ACETAMINOPHEN 0 ug/ml (10-30); SALICYLATE 2.1 mg/dL (2.8-20.0)
--- NOTE | 2018-07-11 00:45 | NUR ---
ASHLIE HARDY AT BEDSIDE TO EVAL PT.
--- NOTE | 2018-07-11 02:16 | NUR ---
PT ASLEEP, NO ACUTE DISTRESS NOTED, RESP EVEN AND UNLABORED. CALL LIGHT WITHIN REACH. WILL CONTINUE TO MONITOR PT CLOSELY.
[2018-07-11] MEDS ORDERED: DIPHENHYDRAMINE HCL 12.5 MG/5 ML UDC PO ONE (05:00)
[2018-07-11] MEDS ORDERED: diphenhydrAMINE HCL ELIX 25 MG/10 ML UDC ONE (05:08)
--- NOTE | 2018-07-11 05:53 | NUR ---
PT ASLEEP, NO ACUTE DISTRESS NOTED, RESP EVEN AND UNLABORED, CALL LIGHT WITHIN REACH. WILL CONTINUE TO MONITOR PT CLOSELY.
--- NOTE | 2018-07-11 08:31 | NUR ---
REPORT GIVEN TO VICTORINA GOMES FOR MERY
--- NOTE | 2018-07-11 08:42 | NUR ---
PATIENT TRANSFERRED TO ROOM 216, IN STABLE CONDITION.
[2018-07-11] MEDS ORDERED: MAGNESIUM HYDROXIDE 30 ML UDC PO PRN (10:30)
[2018-07-11] MEDS ORDERED: ACETAMINOPHEN 325 MG TABLET PO PRN (10:30)
[2018-07-11] MEDS ORDERED: MAG HYDROX/AL HYDROX/SIMETH 30 ML UDC PO PRN (10:30)
[2018-07-11] MEDS: CLONIDINE HCL 0.1MG/24H PTWK 1 EA PATCH TD SCH (11:57)
[2018-07-11] MEDS: LEVOTHYROXINE SODIUM 125 MCG TABLET PO SCH (11:57)
[2018-07-11] MEDS: LISINOPRIL (10MG) 10 MG TABLET PO SCH (11:58)
--- NOTE | 2018-07-11 13:29 | NUR ---
Social service consult requested from MD Lyons, for new admit. Social work reviewed case, pt has been transferred to GPS. [facility] social services aide will conduct assessment.
[2018-07-11] MEDS ORDERED: LEVO88TA5 PO (15:32)
[2018-07-11] MEDS ORDERED: ASPI-605 PO (15:35)
[2018-07-11] MEDS ORDERED: SERT50TA PO (15:36)
[2018-07-11] MEDS ORDERED: ACID1TAB12 GT (15:40)
[2018-07-11] MEDS ORDERED: METO25TA20 GT (15:41)
[2018-07-11] MEDS ORDERED: LOSA50TA3 PO (15:57)
[2018-07-11 16:00] VITALS: BP 156/95
[2018-07-11] MEDS ORDERED: DOCU-141 PO (16:00)
[2018-07-11] MEDS ORDERED: ATOR10TA PO (16:01)
[2018-07-11] MEDS ORDERED: CHOL10002 PO (16:04)
[2018-07-11] MEDS ORDERED: LEVO75TA7 PO (16:05)
[2018-07-11] MEDS ORDERED: SENN-168 PO (16:07)
[2018-07-11] MEDS ORDERED: HYDR-4384 PO (16:14)
[2018-07-11] MEDS ORDERED: LACT10SO PO (16:14)
[2018-07-11] MEDS ORDERED: DIPH50CA37 MC (16:17)
--- NOTE | 2018-07-11 18:17 | NUR ---
GPS/RN-NOTES ADMITTED PATIENT FROM ER [facility]. PATIENT CAME IN THE UNIT AT FIRST AND SIGN VOLUNTARY STATUS FOR DEPRESSION WITH SUPERFICIAL CUT ON HER LEFT WRIST. AROUND 1210 PM PET TEAM CLINICIAN JEREMIAH HOANG CAME AND ASSESS THE PATIENT AND PUT PATIENT ON 5150 FOR DTS AND GD. UPON FACE TO FACE ASSESSMENT. PATIENT ALERT ORIENTED X3 AMBULATORY USING WALKER. PATIENT DENIES SI/HI AT THIS TIME. STATED" I CUT MY WRIST BECAUSE I WANT TO GET OUT THAT PLACE ,BUT I HAVE NO INTENSION TO KILL MY SELF". PATIENT WAS ORIENTED IN THE UNIT AND UNIT POLICIES. PATIENT REFUSED TO SIGN ADMISSION PAPERS. SKIN ASSESSMENT DONE,CONTRABAND AND MRSA DONE AND SEND TO THE LAB. PATIENT'S RIGHTS WAS REVIEWED WITH THE PATIENT WITH UNDERSTANDING, BOOKLET WAS GIVEN TO THE PATIENT.PATIENT GRANDSON MACKENZIE([phone]) MADE AWARE OF THE PATIENT ADMISSION. DR. PADILLA SEEN THE PATIENT WITH ORDERS.PER SHARON STYLES HE WILL COME AND SEE THE PATIENT AND RECONCILE MEDICATIONS.
[2018-07-11] MEDS ORDERED: LACTULOSE 10 G/15 ML UDC (PYXIS) PO PRN (19:00)
--- NOTE | 2018-07-11 19:16 | NUR ---
GPS/RN-NOTES SHARON STYLES IN THE UNIT AT THIS TIME.
[2018-07-11 19:57] VITALS: BP 109/66
[2018-07-11] MEDS: diphenhydrAMINE HCL 50 MG CAPSULE MC PRN (20:11)
[2018-07-11] MEDS: METOPROLOL TARTRATE 25 MG TABLET GT SCH (21:41)
[2018-07-11] MEDS: SENNOSIDES 8.6 MG TABLET PO SCH (21:42)
[2018-07-12] MEDS: LEVOTHYROXINE SODIUM 125 MCG TABLET PO SCH (07:30)
[2018-07-12 07:43] LABS: ALANINE AMINOTRANSFERASE 28 U/L (12-78); ALBUMIN 3.4 g/dL (3.4-5.0); ALKALINE PHOSPHATASE 75 U/L (46-116); ASPARTATE AMINOTRANSFERASE 25 U/L (15-37); BILIRUBIN,TOTAL 0.6 mg/dL (0.2-1.0); CALCIUM, SERUM 9.3 mg/dL (8.5-10.1); CARBON DIOXIDE 26 mmol/L (21-32); CHLORIDE 107 mmol/L (98-107); CREATININE 0.8 mg/dL (0.6-1.3); GLUCOSE 98 mg/dL (74-106); POTASSIUM 3.8 mmol/L (3.5-5.1); SODIUM SERUM 142 mmol/L (136-145); TOTAL PROTEIN, SERUM 6.7 g/dL (6.4-8.2); UREA NITROGEN, BLOOD 27 mg/dL (7-18)
[2018-07-12 07:48] LABS: CHOLESTEROL 110 mg/dL (<200); HDL CHOLESTEROL 53 mg/dL (40-60); LDL 42 mg/dL (0-99); TRIGLYCERIDES 91 mg/dL (30-150)
[2018-07-12 08:00] VITALS: BP 127/68
[2018-07-12] MEDS: DOCUSATE SODIUM 100 MG CAPSULE PO SCH ×2 (08:48→16:32)
[2018-07-12] MEDS: METOPROLOL TARTRATE 25 MG TABLET GT SCH ×2 (08:48→21:10)
[2018-07-12] MEDS: ASPIRIN EC 81 MG TABLET.DR PO SCH (08:48)
[2018-07-12] MEDS: CHOLECALCIFEROL 1,000 UNIT TABLET (VIT D3) PO SCH (08:48)
[2018-07-12] MEDS: SERTRALINE HCL 50 MG TABLET PO SCH (08:48)
[2018-07-12] MEDS: LOSARTAN POTASSIUM 50 MG TABLET PO SCH (08:48)
[2018-07-12] MEDS ORDERED: LEVOTHYROXINE SODIUM 75 MCG TABLET PO SCH (09:00)
[2018-07-12] MEDS ORDERED: LEVOTHYROXINE SODIUM 88 MCG TABLET PO SCH (09:00)
[2018-07-12] MEDS: ACIDOPHILUS/BULGARICUS 1 EACH TAB.CHEW GT SCH ×2 (09:27→16:32)
[2018-07-12] MEDS: LISINOPRIL (10MG) 10 MG TABLET PO SCH (09:27)
[2018-07-12] MEDS ORDERED: LEVO100T9 PO (10:11)
[2018-07-12] MEDS: diphenhydrAMINE HCL 50 MG CAPSULE MC PRN (11:47)
[2018-07-12] MEDS: LEVOTHYROXINE SODIUM 100 MCG TABLET PO SCH (11:47)
--- NOTE | 2018-07-12 12:16 | NUR ---
WOUND CARE CONSULT: PT PRESENTS WITH DRY SCRATCH BROWNE, PRESENT ON ADMISSION ON LEFT WRIST WHICH SHE STATES ARE SELF INFLICTED FROM HOME. PT ALSO NOTED TO HAVE RED, WARM AREA TO BACK AND SOME REDNESS TO RIB REGION, PRESENT ON ADMISSION. RECOMMENDATIONS MADE FOR SKIN PROTECTION. DISCUSSED WITH NURSING STAFF. PT IS AMBULATORY AND CONTINENT. PT USES WALKER. WILL SEE PRN. ALAN IN AGREEMENT WITH PLAN OF CARE. Addendum: 07/12/18 at 1218 by MARKO COMBS WNDNU Amended: Links added.
[2018-07-12] MEDS ORDERED: Z GUARD REMEDY 2 OZ OINT TP PRN (12:30)
[2018-07-12] MEDS: Z GUARD REMEDY 2 OZ OINT TP SCH (15:17)
[2018-07-12 16:00] VITALS: BP 138/79
[2018-07-12] MEDS ORDERED: DEXAMETHASONE SOD PHOSPHATE 10 MG/ML VIAL IM ONE (16:00)
--- NOTE | 2018-07-12 16:01 | NUR ---
DIMPLE contacted Chema, admission coordinator at [facility] Address: [address] [place] [address] who stated pt has been giving the facilities difficulty with her behavior and wished for pt to be placed elsewhere. Chema stated that if no other SNF will accept the facility will take her back.
[2018-07-12] MEDS: FAMOTIDINE (20 MG) 20 MG TABLET PO SCH (16:32)
[2018-07-12] MEDS: ATORVASTATIN 10 MG TABLET PO SCH (17:01)
[2018-07-12 20:21] VITALS: BP 120/59
[2018-07-12] MEDS: SENNOSIDES 8.6 MG TABLET PO SCH (21:10)
[2018-07-12] MEDS: diphenhydrAMINE HCL ELIX 25 MG/10 ML UDC PO PRN (21:14)
[2018-07-13] MEDS: LORAZEPAM 0.5 MG TABLET PO PRN (05:51)
[2018-07-13 08:00] VITALS: BP 132/64
[2018-07-13] MEDS: FAMOTIDINE (20 MG) 20 MG TABLET PO SCH (08:21)
[2018-07-13] MEDS: SERTRALINE HCL 50 MG TABLET PO SCH (08:21)
[2018-07-13] MEDS: ACIDOPHILUS/BULGARICUS 1 EACH TAB.CHEW GT SCH ×2 (08:21→16:15)
[2018-07-13] MEDS: DOCUSATE SODIUM 100 MG CAPSULE PO SCH ×3 (08:21→16:15)
[2018-07-13] MEDS: LEVOTHYROXINE SODIUM 100 MCG TABLET PO SCH (08:21)
[2018-07-13] MEDS: ASPIRIN EC 81 MG TABLET.DR PO SCH (08:21)
[2018-07-13] MEDS: LOSARTAN POTASSIUM 50 MG TABLET PO SCH (08:21)
[2018-07-13] MEDS: CHOLECALCIFEROL 1,000 UNIT TABLET (VIT D3) PO SCH (08:21)
[2018-07-13] MEDS: METOPROLOL TARTRATE 25 MG TABLET GT SCH ×2 (08:22→20:27)
[2018-07-13] MEDS: LISINOPRIL (10MG) 10 MG TABLET PO SCH (08:22)
[2018-07-13] MEDS: Z GUARD REMEDY 2 OZ OINT TP SCH (10:07)
--- NOTE | 2018-07-13 11:48 | NUR ---
SW attempted to contact pts son Donte [phone], unable to reach and left voicemail for callback.
--- NOTE | 2018-07-13 12:03 | NUR ---
INITIAL DISCHARGE PLAN: Per pt she does not want to return to [facility] Address: [address] [facility], [place] [address] . DIMPLE contacted marketing Chemadirector of marketing communications who stated that due to pts erratic behavior the facility was unable to provide her with the appropriate care. Pt needs placement. DIMPLE will help form a safe and proper discharge in collaboration with .
[2018-07-13 16:00] VITALS: BP 150/96
[2018-07-13] MEDS: diphenhydrAMINE HCL ELIX 25 MG/10 ML UDC PO PRN (16:42)
[2018-07-13] MEDS: ATORVASTATIN 10 MG TABLET PO SCH (17:07)
[2018-07-13 20:00] VITALS: BP 110/57
[2018-07-13] MEDS: TEMAZEPAM 7.5 MG CAPSULE PO PRN (20:26)
[2018-07-13] MEDS: SENNOSIDES 8.6 MG TABLET PO SCH (20:27)
--- NOTE | 2018-07-13 20:28 | NUR ---
METOPROLOL 25 MG TAB NOT GIVEN, LOW BP 110/57, HR 64
--- NOTE | 2018-07-13 20:29 | NUR ---
PATIENT REQUESTED FOR EARLY DOSE OF THE NIGHT MEDS, RESTORIL AND SENOKOT.
[2018-07-14] MEDS: HYDROCODONE/APAP 5/325MG 1 EACH TABLET PO PRN ×2 (07:03→14:48)
--- NOTE | 2018-07-14 07:04 | NUR ---
C/O BACK PAIN, 3/10 ON PAIN SCALE, NORCO TAB 5/325 MG @0704
[2018-07-14 08:00] VITALS: BP 134/68
[2018-07-14] MEDS: ACIDOPHILUS/BULGARICUS 1 EACH TAB.CHEW GT SCH ×2 (08:53→16:13)
[2018-07-14] MEDS: ASPIRIN EC 81 MG TABLET.DR PO SCH (08:53)
[2018-07-14] MEDS: FAMOTIDINE (20 MG) 20 MG TABLET PO SCH (08:53)
[2018-07-14] MEDS: METOPROLOL TARTRATE 25 MG TABLET GT SCH ×2 (08:54→20:16)
[2018-07-14] MEDS: DOCUSATE SODIUM 100 MG CAPSULE PO SCH ×2 (08:54→16:12)
[2018-07-14] MEDS: CHOLECALCIFEROL 1,000 UNIT TABLET (VIT D3) PO SCH (08:54)
[2018-07-14] MEDS: SERTRALINE HCL 50 MG TABLET PO SCH (08:54)
[2018-07-14] MEDS: LEVOTHYROXINE SODIUM 100 MCG TABLET PO SCH (08:54)
[2018-07-14] MEDS: diphenhydrAMINE HCL ELIX 25 MG/10 ML UDC PO PRN (08:54)
[2018-07-14] MEDS: LOSARTAN POTASSIUM 50 MG TABLET PO SCH (08:59)
[2018-07-14] MEDS: LISINOPRIL (10MG) 10 MG TABLET PO SCH (09:00)
[2018-07-14] MEDS: Z GUARD REMEDY 2 OZ OINT TP SCH (09:01)
[2018-07-14 16:00] VITALS: BP 144/79
--- NOTE | 2018-07-14 16:13 | NUR ---
SW contacted pts gurwinder Kent [phone] and discussed pts discharge plan. Gurwinder stated pt needs placement. Gurwinder also stated that pt has been from jail to jail and he is unable to care for her. SW will refer pt to [facility].
--- NOTE | 2018-07-14 16:25 | NUR ---
SW met with pts gurwinder Kent [phone] who provided SW with collateral information stating pt has been in 15 SNF's in the past 2 years and pt always cuts her writs to get out. Grandson stated that he does not know what to do to help pt and stated he's unable to care for her.
[2018-07-14] MEDS: ATORVASTATIN 10 MG TABLET PO SCH (18:16)
[2018-07-14 20:00] VITALS: BP 106/58
[2018-07-14] MEDS: SENNOSIDES 8.6 MG TABLET PO SCH (20:15)
--- NOTE | 2018-07-14 20:17 | NUR ---
CAME TO NURSE'S STATION, ASKING FOR HER NIGHT MEDS, TEMAZEPAM 7.5 MG CAP PO GIVEN, SENNA 8.6 MG TAB PO GIVEN.
[2018-07-14] MEDS: TEMAZEPAM 7.5 MG CAPSULE PO PRN (20:19)
[2018-07-15 08:00] VITALS: BP 129/63
[2018-07-15] MEDS: LISINOPRIL (10MG) 10 MG TABLET PO SCH (09:00)
[2018-07-15] MEDS: LOSARTAN POTASSIUM 50 MG TABLET PO SCH (09:00)
[2018-07-15] MEDS: LEVOTHYROXINE SODIUM 100 MCG TABLET PO SCH (09:02)
[2018-07-15] MEDS: FAMOTIDINE (20 MG) 20 MG TABLET PO SCH (09:03)
[2018-07-15] MEDS: SERTRALINE HCL 50 MG TABLET PO SCH (09:03)
[2018-07-15] MEDS: ASPIRIN EC 81 MG TABLET.DR PO SCH (09:03)
[2018-07-15] MEDS: ACIDOPHILUS/BULGARICUS 1 EACH TAB.CHEW GT SCH ×2 (09:03→16:00)
[2018-07-15] MEDS: METOPROLOL TARTRATE 25 MG TABLET GT SCH ×2 (09:03→21:18)
[2018-07-15] MEDS: CHOLECALCIFEROL 1,000 UNIT TABLET (VIT D3) PO SCH (09:03)
[2018-07-15] MEDS: DOCUSATE SODIUM 100 MG CAPSULE PO SCH ×2 (09:03→16:00)
[2018-07-15] MEDS: HYDROCODONE/APAP 5/325MG 1 EACH TABLET PO PRN ×2 (09:09→15:05)
[2018-07-15] MEDS: Z GUARD REMEDY 2 OZ OINT TP SCH (09:10)
[2018-07-15] MEDS: diphenhydrAMINE HCL ELIX 25 MG/10 ML UDC PO PRN ×2 (10:54→17:06)
[2018-07-15 16:00] VITALS: BP 130/64
[2018-07-15] MEDS: ATORVASTATIN 10 MG TABLET PO SCH (17:07)
[2018-07-15] MEDS: LORAZEPAM 0.5 MG TABLET PO PRN (19:39)
[2018-07-15 20:00] VITALS: BP 159/78
[2018-07-15] MEDS: SENNOSIDES 8.6 MG TABLET PO SCH (21:18)
[2018-07-16 08:00] VITALS: BP 167/81
[2018-07-16] MEDS: diphenhydrAMINE HCL 50 MG CAPSULE MC PRN ×2 (08:00→15:22)
[2018-07-16] MEDS: LEVOTHYROXINE SODIUM 100 MCG TABLET PO SCH (08:01)
[2018-07-16] MEDS: ASPIRIN EC 81 MG TABLET.DR PO SCH (08:02)
[2018-07-16] MEDS: DOCUSATE SODIUM 100 MG CAPSULE PO SCH ×2 (08:03→16:00)
[2018-07-16] MEDS: FAMOTIDINE (20 MG) 20 MG TABLET PO SCH (08:03)
[2018-07-16] MEDS: CHOLECALCIFEROL 1,000 UNIT TABLET (VIT D3) PO SCH (08:04)
[2018-07-16] MEDS: LISINOPRIL (10MG) 10 MG TABLET PO SCH (08:05)
[2018-07-16] MEDS: ACIDOPHILUS/BULGARICUS 1 EACH TAB.CHEW GT SCH ×2 (08:05→16:00)
[2018-07-16] MEDS: LOSARTAN POTASSIUM 50 MG TABLET PO SCH (08:06)
[2018-07-16] MEDS: SERTRALINE HCL 50 MG TABLET PO SCH (08:07)
[2018-07-16] MEDS: METOPROLOL TARTRATE 25 MG TABLET GT SCH ×2 (08:07→21:45)
[2018-07-16] MEDS: HYDROCODONE/APAP 5/325MG 1 EACH TABLET PO PRN ×2 (08:08→15:22)
[2018-07-16] MEDS: Z GUARD REMEDY 2 OZ OINT TP SCH (08:09)
[2018-07-16 16:00] VITALS: BP 128/70
[2018-07-16] MEDS: ATORVASTATIN 10 MG TABLET PO SCH (17:12)
[2018-07-16] MEDS: ENSURE ENLIVE 237 ML LIQUID (VANILLA) PO SCH (17:12)
[2018-07-16] MEDS: LORAZEPAM 0.5 MG TABLET PO PRN (20:10)
[2018-07-16 20:22] VITALS: BP 148/68
[2018-07-16] MEDS: SENNOSIDES 8.6 MG TABLET PO SCH (21:44)
[2018-07-17] MEDS: diphenhydrAMINE HCL 50 MG CAPSULE MC PRN ×3 (00:02→18:39)
[2018-07-17 08:00] VITALS: BP 150/86
[2018-07-17] MEDS: LEVOTHYROXINE SODIUM 100 MCG TABLET PO SCH (08:17)
[2018-07-17] MEDS: ENSURE ENLIVE 237 ML LIQUID (VANILLA) PO SCH ×3 (08:18→17:03)
[2018-07-17] MEDS: CHOLECALCIFEROL 1,000 UNIT TABLET (VIT D3) PO SCH (08:43)
[2018-07-17] MEDS: FAMOTIDINE (20 MG) 20 MG TABLET PO SCH (08:43)
[2018-07-17] MEDS: ASPIRIN EC 81 MG TABLET.DR PO SCH (08:43)
[2018-07-17] MEDS: DOCUSATE SODIUM 100 MG CAPSULE PO SCH ×2 (08:43→16:41)
[2018-07-17] MEDS: LISINOPRIL (10MG) 10 MG TABLET PO SCH (08:44)
[2018-07-17] MEDS: SERTRALINE HCL 50 MG TABLET PO SCH (08:44)
[2018-07-17] MEDS: ACIDOPHILUS/BULGARICUS 1 EACH TAB.CHEW GT SCH ×2 (08:45→16:39)
[2018-07-17] MEDS: LOSARTAN POTASSIUM 50 MG TABLET PO SCH (08:45)
[2018-07-17] MEDS: METOPROLOL TARTRATE 25 MG TABLET GT SCH ×2 (08:46→21:00)
[2018-07-17] MEDS: HYDROCODONE/APAP 5/325MG 1 EACH TABLET PO PRN ×2 (08:47→15:01)
--- NOTE | 2018-07-17 09:18 | NUR ---
DIMPLE faxed SNF referral to CJ, guest relations coordinator at [facility] and [facility] Address: [address] [place] [address] for review.
[2018-07-17] MEDS: Z GUARD REMEDY 2 OZ OINT TP SCH (09:20)
--- NOTE | 2018-07-17 12:16 | NUR ---
SW received a call from TANYA, web marketing coordinator at [facility] Address: [address] [place] [address] stating pt has been denied due to her suicide attempt at her previous SNF.
--- NOTE | 2018-07-17 12:18 | NUR ---
SW received a call from Rody, recruiter coordinator at [facility] ([facility]) [address] [facility] [address] stating pt has been approved and will have a bed available on Tuesday07/21/18.
[2018-07-17 16:00] VITALS: BP 129/66
[2018-07-17] MEDS: ATORVASTATIN 10 MG TABLET PO SCH (17:03)
[2018-07-17 19:41] VITALS: BP 149/65
[2018-07-17] MEDS: TEMAZEPAM 7.5 MG CAPSULE PO PRN (20:19)
[2018-07-17] MEDS: SENNOSIDES 8.6 MG TABLET PO SCH (22:00)
[2018-07-18] MEDS: CLONIDINE HCL 0.1MG/24H PTWK 1 EA PATCH TD SCH (00:16)
[2018-07-18 07:24] LABS: CALCIUM, SERUM 8.8 mg/dL (8.5-10.1); CARBON DIOXIDE 27 mmol/L (21-32); CHLORIDE 107 mmol/L (98-107); CREATININE 0.7 mg/dL (0.6-1.3); GLUCOSE 99 mg/dL (74-106); POTASSIUM 4.3 mmol/L (3.5-5.1); SODIUM SERUM 140 mmol/L (136-145); UREA NITROGEN, BLOOD 27 mg/dL (7-18)
[2018-07-18 08:00] VITALS: BP 160/78
[2018-07-18] MEDS: METOPROLOL TARTRATE 25 MG TABLET GT SCH ×2 (08:49→20:32)
[2018-07-18] MEDS: LEVOTHYROXINE SODIUM 100 MCG TABLET PO SCH (08:49)
[2018-07-18] MEDS: ACIDOPHILUS/BULGARICUS 1 EACH TAB.CHEW GT SCH ×2 (08:49→16:36)
[2018-07-18] MEDS: FAMOTIDINE (20 MG) 20 MG TABLET PO SCH (08:50)
[2018-07-18] MEDS: ASPIRIN EC 81 MG TABLET.DR PO SCH (08:50)
[2018-07-18] MEDS: SERTRALINE HCL 50 MG TABLET PO SCH (08:50)
[2018-07-18] MEDS: LISINOPRIL (10MG) 10 MG TABLET PO SCH (08:50)
[2018-07-18] MEDS: ASCORBIC ACID 500 MG TABLET PO SCH (08:50)
[2018-07-18] MEDS: DOCUSATE SODIUM 100 MG CAPSULE PO SCH ×2 (08:50→16:36)
[2018-07-18] MEDS: diphenhydrAMINE HCL ELIX 25 MG/10 ML UDC PO PRN ×2 (08:53→15:03)
[2018-07-18] MEDS: CHOLECALCIFEROL 1,000 UNIT TABLET (VIT D3) PO SCH (08:53)
[2018-07-18] MEDS: LOSARTAN POTASSIUM 50 MG TABLET PO SCH (08:54)
[2018-07-18] MEDS: Z GUARD REMEDY 2 OZ OINT TP SCH (08:55)
[2018-07-18] MEDS: ENSURE ENLIVE 237 ML LIQUID (VANILLA) PO SCH ×3 (08:58→16:37)
--- NOTE | 2018-07-18 14:00 | NUR ---
GPS. RN. PT THREW CHAIR IN COMMON ROOM, PRESENT AND CHANGED MEDICATIONS. PY NOW RIADRY. SECURITY AND RN X4 PRESENT TO GIVE IM SHOT. PT COMPLIANT AND WILLINGLY LAID ON BED. PT GIVEN IM SHOT TO RIGHT BUTTOCKS BY ELISEO PRAJAPATI WITHOUT INCIDENT. PT WITH [id number] FOR SAFETY AND MONITORING. Addendum: 07/18/18 at 1738 by ADRIAN HARO RN THIS NOTE WAS CHARTED INCORRECTLY. IT DOES NOT APPLY TO THIS PT.
[2018-07-18] MEDS: HYDROCODONE/APAP 5/325MG 1 EACH TABLET PO PRN (14:53)
[2018-07-18 16:00] VITALS: BP 156/67
[2018-07-18] MEDS: ATORVASTATIN 10 MG TABLET PO SCH (17:41)
[2018-07-18 20:13] VITALS: BP 146/87
[2018-07-18] MEDS: TEMAZEPAM 7.5 MG CAPSULE PO PRN (20:32)
--- NOTE | 2018-07-18 20:45 | NUR ---
GPS RN NOTE: PATIENT REQUEST FOR SLEEPING MEDICATION, RESTORIL 7.5MG 1 TAB ORAL GIVEN PER MD ORDER. WILL CONTINUE TO MONITOR.
[2018-07-18] MEDS: SENNOSIDES 8.6 MG TABLET PO SCH (21:05)
[2018-07-18] MEDS: LORAZEPAM 0.5 MG TABLET PO PRN (21:13)
--- NOTE | 2018-07-18 21:15 | NUR ---
GPS RN NOTE: PATIENT ANXIOUS REQUESTING MEDICATION TO HELP RELAX, ATIVAN 0.5MG 1 TAB ORAL GIVEN PER MD ORDER. WILL CONTINUE TO MONITOR.
[2018-07-19 08:00] VITALS: BP 140/66
[2018-07-19] MEDS: METOPROLOL TARTRATE 25 MG TABLET GT SCH ×2 (08:19→20:08)
[2018-07-19] MEDS: DOCUSATE SODIUM 100 MG CAPSULE PO SCH ×2 (08:19→17:00)
[2018-07-19] MEDS: ACIDOPHILUS/BULGARICUS 1 EACH TAB.CHEW GT SCH ×2 (08:19→17:28)
[2018-07-19] MEDS: CHOLECALCIFEROL 1,000 UNIT TABLET (VIT D3) PO SCH (08:19)
[2018-07-19] MEDS: LEVOTHYROXINE SODIUM 100 MCG TABLET PO SCH (08:19)
[2018-07-19] MEDS: diphenhydrAMINE HCL ELIX 25 MG/10 ML UDC PO PRN ×2 (08:19→15:27)
[2018-07-19] MEDS: LISINOPRIL (10MG) 10 MG TABLET PO SCH (08:20)
[2018-07-19] MEDS: HYDROCODONE/APAP 5/325MG 1 EACH TABLET PO PRN ×2 (08:20→15:27)
[2018-07-19] MEDS: ASCORBIC ACID 500 MG TABLET PO SCH (08:20)
[2018-07-19] MEDS: LOSARTAN POTASSIUM 50 MG TABLET PO SCH (08:20)
[2018-07-19] MEDS: FAMOTIDINE (20 MG) 20 MG TABLET PO SCH (08:20)
[2018-07-19] MEDS: SERTRALINE HCL 50 MG TABLET PO SCH (08:20)
[2018-07-19] MEDS: ASPIRIN EC 81 MG TABLET.DR PO SCH (08:20)
[2018-07-19] MEDS: Z GUARD REMEDY 2 OZ OINT TP SCH (08:21)
[2018-07-19] MEDS: ENSURE ENLIVE 237 ML LIQUID (VANILLA) PO SCH ×3 (08:22→17:28)
[2018-07-19 16:00] VITALS: BP 135/67
[2018-07-19] MEDS: ATORVASTATIN 10 MG TABLET PO SCH (17:28)
[2018-07-19 19:56] VITALS: BP 130/64
[2018-07-19] MEDS: TEMAZEPAM 7.5 MG CAPSULE PO PRN (20:09)
[2018-07-19] MEDS: LORAZEPAM 0.5 MG TABLET PO PRN (21:05)
[2018-07-19] MEDS: SENNOSIDES 8.6 MG TABLET PO SCH (21:07)
[2018-07-20 08:00] VITALS: BP 134/71
[2018-07-20 08:13] LABS: CALCIUM, SERUM 9.2 mg/dL (8.5-10.1); CARBON DIOXIDE 32 mmol/L (21-32); CHLORIDE 103 mmol/L (98-107); CREATININE 0.7 mg/dL (0.6-1.3); GLUCOSE 93 mg/dL (74-106); POTASSIUM 4.3 mmol/L (3.5-5.1); SODIUM SERUM 140 mmol/L (136-145); UREA NITROGEN, BLOOD 30 mg/dL (7-18)
[2018-07-20] MEDS: LOSARTAN POTASSIUM 50 MG TABLET PO SCH (08:18)
[2018-07-20] MEDS: ACIDOPHILUS/BULGARICUS 1 EACH TAB.CHEW GT SCH (08:18)
[2018-07-20] MEDS: SERTRALINE HCL 50 MG TABLET PO SCH (08:19)
[2018-07-20] MEDS: LISINOPRIL (10MG) 10 MG TABLET PO SCH (08:19)
[2018-07-20] MEDS: CHOLECALCIFEROL 1,000 UNIT TABLET (VIT D3) PO SCH (08:19)
[2018-07-20] MEDS: FAMOTIDINE (20 MG) 20 MG TABLET PO SCH (08:19)
[2018-07-20] MEDS: ASCORBIC ACID 500 MG TABLET PO SCH (08:19)
[2018-07-20] MEDS: ASPIRIN EC 81 MG TABLET.DR PO SCH (08:19)
[2018-07-20] MEDS: LEVOTHYROXINE SODIUM 100 MCG TABLET PO SCH (08:19)
[2018-07-20 08:20] VITALS: BP 134/71
[2018-07-20] MEDS: METOPROLOL TARTRATE 25 MG TABLET GT SCH (08:20)
[2018-07-20] MEDS: DOCUSATE SODIUM 100 MG CAPSULE PO SCH ×2 (08:20→08:29)
[2018-07-20] MEDS: ENSURE ENLIVE 237 ML LIQUID (VANILLA) PO SCH ×2 (08:22→12:29)
[2018-07-20] MEDS: diphenhydrAMINE HCL ELIX 25 MG/10 ML UDC PO PRN (08:45)
[2018-07-20] MEDS: Z GUARD REMEDY 2 OZ OINT TP SCH (09:12)
[2018-07-20] MEDS: HYDROCODONE/APAP 5/325MG 1 EACH TABLET PO PRN (10:14)
--- NOTE | 2018-07-20 11:28 | NUR ---
Dr. Corbin gave an order to D/C hold and d/c to [facility], to continue same meds and to follow up with psych and medical doctors. Dr. Fields made aware and he reconciled meds. Pt. without distress, denies suicidal and homicidal.
--- NOTE | 2018-07-20 11:42 | NUR ---
Report given to Debbi mccracken the facility. Addendum: 07/20/18 at 1344 by SANDRINE SALAS RN Belongings ready, pictures taken for the skin issues and refused to signed the discharge papers.
--- NOTE | 2018-07-20 12:31 | NUR ---
DISCHARGE NOTE: Pt will be discharging at 1:30pm to [facility] ([facility]) [address] [facility] [address] via [id number] trip #[phone] . Pts Grandson Donte [phone] has been notified and agrees with discharge plan. Pts mood is confused and anxious with congruent affect stating shes not going to a SNF because the Psychiatrist told her he would take her to a long-term. Pt denied visual/auditory hallucinations and denied suicidal/homicidal ideation. Pt will be under the care of Psychiatrist: Dr. Adriano Hanley [address] [id number] [phone] and Certified Professional Ergonomist: Dr. Anatoly Rowland [address] [id number] . The multidisciplinary exitcare form was done, printed, signed, and given to the patient.
--- NOTE | 2018-07-20 13:40 | NUR ---
Pt. left the unit via ambulance and transported via a gurney. Left without distress and on stable condition. V/S taken: BP 135/57, OR 65, RR 20 and oxygen sat 100%.
== END 2018-07-20 13:40 | DRG 885 ==
LOC: ER 21:47 → UNDOADMIN 23:23 → GPS 23:23 → ER 07-11 08:44 → GPS 07-11 09:59
PROVIDERS: ADMIT Psychiatry & Neurology Psychiatry; ATTEND Psychiatry & Neurology Psychiatry
DX: F33.2 Major depressive disorder, recurrent severe without psychotic features (principal); N17.9 Acute kidney failure, unspecified; E44.1 Mild protein-calorie malnutrition; Z68.1 Body mass index [BMI] 19.9 or less, adult; R45.851 Suicidal ideations; E03.9 Hypothyroidism, unspecified; I25.10 Atherosclerotic heart disease of native coronary artery without angina pectoris; I10 Essential (primary) hypertension; G30.9 Alzheimer's disease, unspecified; F02.80 Dementia in other diseases classified elsewhere, unspecified severity, without behavioral disturbance, psychotic disturbance, mood disturbance, and anxiety; F29 Unspecified psychosis not due to a substance or known physiological condition; Z73.6 Limitation of activities due to disability; L25.9 Unspecified contact dermatitis, unspecified cause; E88.09 Other disorders of plasma-protein metabolism, not elsewhere classified; Z95.5 Presence of coronary angioplasty implant and graft
CPT/HCPCS: 36415; 80048-TC; 80053-TC; 80061-TC; 80076-TC; 80305; 81000-TC; 85025-TC; 87081-TC; A6402; G0480; J1100; Q0163